=== PATIENT | female | born 1975 | race African-American/Black ===

== ENCOUNTER → 2018-03-02 09:12 | Outpatient (CLI) | payer MEDICAID, SELFPAY ==
[2018-03-02 10:11] LABS: Basophils % 0.5 % (0.1-2.0); Eosinophils # 0.2 K/mm3 (0.0-0.4); Eosinophils % 3.9 % (0.1-12.0); Hematocrit 38.2 % (37.0-47.0); Lymphocytes # 1.6 K/mm3 (0.7-4.5); Mean Corpuscular HGB Conc 31.4 g/dL (31.8-35.4); Mean Corpuscular Volume 89.2 fl (81-99); Mean Platelet Volume 6.9 fl (7.4-10.4); Monocytes # 0.4 K/mm3 (0.1-1.0); Monocytes % 9.3 % (1.7-9.3); Neutrophils # 2.3 K/mm3 (1.8-7.8); Neutrophils % 51.4 % (37.0-80.0); Platelet Count 547 K/mm3 (142-424); Red Blood Count 4.28 M/mm3 (4.20-5.40); Red Cell Distribution Width 15.2 % (11.5-17.5); White Blood Count 4.5 K/mm3 (4.8-10.8)
[2018-03-02 10:27] LABS: Anion Gap 11.6 mEq/L (5-15); Blood Urea Nitrogen 31 mg/dL (7-18); Calcium 8.1 mg/dL (8.5-10.1); Carbon Dioxide 25 mmol/L (21.0-32.0); Chloride 105 mmol/L (98-107); Creatinine,Serum 1.84 mg/dL (0.55-1.02); Estimated Glomerular Filt Rate 30 ml/min (>60); GFR (African American) 36 ML/MIN (>60); Glucose 73 mg/dL (74-106); Phosphorous 5.9 mg/dL (2.4-4.9); Potassium 4.6 mmoL/L (3.5-5.1); Sodium 137 mmol/L (136-145)
== END ==
PROVIDERS: Visit Provider Internal Medicine Nephrology
DX: N18.3 Chronic kidney disease, stage 3 (moderate) (principal)
CPT/HCPCS: 36415; 80069; 85025

== ENCOUNTER 2023-01-26 14:33 | Emergency (ER) | payer MEDICAID, SELFPAY ==
[2023-01-26 14:32] VITALS: BP 90/54; PULSE 83; RESP 18; TEMP 36.8; O2SAT 99; BMI 34.3
[2023-01-26 15:00] VITALS: BP 78/42; PULSE 84; RESP 18; O2SAT 99
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
--- NOTE | 2023-01-26 15:15 | PC.NURSE ---
Called Care Management to arrange transportation back to [facility].
--- NOTE | 2023-01-26 15:28 | SW/DCPLANNER ---
I have arranged [facility] for this patient.
[2023-01-26 15:30] VITALS: BP 90/49; PULSE 86; RESP 20; O2SAT 100
--- NOTE | 2023-01-26 15:47 | PC.NURSE ---
Annabelle eckert called advised [facility] would be here to crop picker pt.
[2023-01-26 16:08] VITALS: BP 101/70; PULSE 82; RESP 20; TEMP 36.8; O2SAT 97
== END 2023-01-26 16:11 | disposition home or self-care (01) ==
PROVIDERS: Emergency Provider Emergency Medicine
DX: R51.9 Headache, unspecified (principal); Z00.00 Encounter for general adult medical examination without abnormal findings
CPT/HCPCS: 99283

== ENCOUNTER 2024-03-11 09:27 | Inpatient (IN) | payer OTHER, SELFPAY ==
[2024-03-11] VITALS (29 sets, daily range): BP systolic 101–147; BP diastolic 53–92; PULSE 67–98; RESP 15–20; TEMP 36.3–43; O2SAT 95–100; BMI 37.5
--- NOTE | 2024-03-11 10:21 | ECG_ITS ---
APPROVED REPORT Exam: Resting ECG HR:90 bpm ECG Measurements Heart Rate 90 AXES TN 157 P 68 QRSd 81 QRS 77 QT 342 T 68 QTc 389 Conclusion SINUS RHYTHM NONSPECIFIC T-WAVE ABNORMALITY BORDERLINE ECG Electronically signed by : FRANCOISE CASTILLO, 03/14/2024 07:05:59
--- NOTE | 2024-03-11 10:45 | XR_ITS ---
PROCEDURE INFORMATION: Exam: XR Chest Exam date and time: 03/11/2024 10:52 AM Age: 48 years old Clinical indication: Cough; Additional info: Productive cough TECHNIQUE: Imaging protocol: Radiologic exam of the chest. Views: 2 views. COMPARISON: CR CXR2V XR chest 2V 01/14/2018 5:22 PM FINDINGS: Lungs: Unremarkable. No consolidation. Pleural spaces: Unremarkable. No pleural effusion. No pneumothorax. Heart/Mediastinum: Unremarkable. No cardiomegaly. Bones/joints: Unremarkable. IMPRESSION: No acute findings.
[2024-03-11 10:50] LABS: Basophils % 0.2 % (0.1-2.0); Hematocrit 38.7 % (37.0-47.0); Lymphocytes # 1.1 K/mm3 (0.7-4.5); Mean Corpuscular HGB Conc 33.6 g/dL (31.8-35.4); Mean Corpuscular Hemoglobin 29.5 pg (27.0-31.2); Mean Corpuscular Volume 87.8 fl (81-99); Mean Platelet Volume 10.1 fl (7.4-10.4); Monocytes # 0.9 K/mm3 (0.1-1.0); Neutrophils # 10.3 K/mm3 (1.8-7.8); Neutrophils % 83.6 % (37.0-80.0); Platelet Count 338 K/mm3 (142-424); Red Blood Count 4.41 M/mm3 (4.20-5.40); Red Cell Distribution Width 13.6 % (11.5-17.5); White Blood Count 12.3 K/mm3 (4.8-10.8)
[2024-03-11 10:52] LABS: Albumin Level 4.1 g/dl (3.5-5.0); Chloride 93 mmol/L (98-107); Potassium 3.9 mmoL/L (3.5-5.1); Sodium 131 mmol/L (136-145)
[2024-03-11 10:54] LABS: Blood Urea Nitrogen 21 mg/dl (7-17); Creatinine Clearance Estimated 103 mL/min (50-200); Estimated Glomerular Filt Rate 59 ml/min (>60); GFR (African American) 71 ML/MIN (>60)
[2024-03-11 10:55] LABS: Alanine Aminotransferase 35 U/L (12-78); Albumin/Globulin Ratio 1.3 (1.1-1.8); Alkaline Phosphatase 100 U/L (38-126); Anion Gap 8.9 mEq/L (5-15); Aspartate Amino Transferase 51 U/L (14-36); Bilirubin,Total 0.6 mg/dl (0.2-1.3); Calcium 9.4 mg/dl (8.4-10.2); Carbon Dioxide 33 mmol/L (22.0-30.0); Globulin 3.1 g/dL (1.3-3.2); Glucose 115 mg/dl (74-100); Total Protein,Serum 7.2 g/dl (6.3-8.2)
[2024-03-11 11:07] LABS: Troponin I < 0.01 ng/ml (0.00-0.034)
--- NOTE | 2024-03-11 11:23 | CT_ITS ---
PROCEDURE INFORMATION: Exam: CT Abdomen And Pelvis With Contrast Exam date and time: 03/11/2024 12:18 PM Age: 48 years old Clinical indication: Constipation; Abdominal pain; Generalized; Additional info: Diffuse pain, periumbilical hernia no bm 1 wk TECHNIQUE: Imaging protocol: Computed tomography of the abdomen and pelvis with contrast. Radiation optimization: All CT scans at this facility use at least one of these dose optimization techniques: automated exposure control; mA and/or kV adjustment per patient size (includes targeted exams where dose is matched to clinical indication); or iterative reconstruction. Contrast material: ISOVUE; Contrast volume: 75 ml; Contrast route: IV; COMPARISON: CR XR CHEST 2V 03/11/2024 10:52 AM FINDINGS: Lungs: Nodule with calcification in the right lower lobe measuring 5 mm either a hamartoma or partially calcified granuloma. Pleural spaces: Small left pleural effusion. Liver: Normal. No mass. Gallbladder and biliary ducts: Normal. No calcified stones. No ductal dilation. Pancreas: Normal. No ductal dilation. Spleen: Granulomas in the spleen. Adrenal glands: Normal. No mass. Kidneys and ureters: Normal. No hydronephrosis. Stomach and bowel: There is small bowel obstruction with bowel loops measuring up to 37 mm due to a anterior abdominal wall hernia just above the umbilicus. Appendix: No evidence of appendicitis. Intraperitoneal space: Small amount of pelvic fluid. No significant fluid collection. Vasculature: Unremarkable. No abdominal aortic aneurysm. Lymph nodes: Diameter granulomatous disease and a subcarinal enlarged lymph node. Urinary bladder: Unremarkable as visualized. Reproductive: Unremarkable as visualized. Bones/joints: Unremarkable. No acute fracture. Soft tissues: Multiple nodules noted in the posterior gluteal soft tissues presumably injection granulomata. IMPRESSION: 1. Small bowel obstruction due to an anterior abdominal wall hernia just above the umbilicus. 2. Small left pleural effusion. 3. THIS REPORT CONTAINS FINDINGS THAT MAY BE CRITICAL TO PATIENT CARE. The findings were verbally communicated by me to FRANCOISE CASTILLO at 12:50 PM EST on 03/11/2024. The findings were acknowledged and understood.
--- NOTE | 2024-03-11 11:23 | PC.NURSE ---
LICENSED MARINE ENGINEER NOTIFIED THAT PT NEEDS SITTER, TALEND DEVELOPER NEEDS TO RETURN TO WORK
--- NOTE | 2024-03-11 11:25 | HMH.EDGENADL ---
Discharge Plan Disposition Chief Complaint: Nausea/Vomiting/Diarrhea Prescriptions Prescriptions: No Action spironolactone 25 mg tablet 25 mg PO DAILY Symbicort 80-4.5 mcg/actuation HFA aerosol inhaler 2 puff INHALATION BID Proventil HFA 90 mcg/actuation HFA aerosol inhaler 1 puff INHALATION Q6H PRN (Reason: SOA) lisinopril 10 MG tablet 10 mg PO DAILY oxybutynin chloride 5 MG tablet 5 mg PO DAILY calcium carbonate-vitamin D3 1 EACH tablet,chewable 1 each PO DIRECTED torsemide 20 mg tablet 20 mg PO DAILY levothyroxine 75 mcg tablet 75 mcg PO DAILY montelukast 10 mg tablet 10 mg PO DAILY paliperidone 6 mg tablet extended release 24hr 6 mg PO DAILY Patient Comments: TAKE 1 TABLET BY MOUTH EVERY MORNING Invega Sustenna 234 mg/1.5 mL syringe 234 mg IM Q28D Patient Comments: INJECT 1 SYRINGE INTO THE MUSCLE EVERY 28 DAYS Abilify Maintena 400 mg suspension,extended rel recon 400 mg IM Q28D Referrals Follow up/Referrals: Fran Juan [Primary Care Provider] - See instructions Instructions Patient Instructions: DI for Diarrhea and Traveler's Diarrhea -- Adult, DI for Diarrhea and Traveler's Diarrhea -- Child, DI for Nausea -- Adult, DI for Nausea -- Child Print Language Print Language: Greenlandic Discharge ED Provider: Khalif Kaplan General Adult HPI General Chief complaint: Nausea/Vomiting/Diarrhea Stated complaint: vomiting, heartburn Time Seen by Provider: 03/11/24 10:26 Mode of Arrival: Ambulatory Source of Information: Patient Limitations: No Limitations Description of Symptoms (Recalled from ER Triage Doc. by RN): pt c/o N/V, heart burn, and a productive cough with green sputum X3d. pt also reports her last BM was 1wk ago and she thinks she maybe constipated. pt states she feels queasy but denies abd pain. pt denies SOA or chest pain with the exception of heart burn History of Present Illness HPI narrative: Patient is a 48-year-old female past medical history of schizophrenia on Invega who presents emergency department for evaluation of no bowel movement x 1 week. History is obtained by patient and by caregiver at bedside she lives at long-term care facility due to her schizophrenia causing chronic audiovisual hallucinations and inability to complete her activities of daily living. She has not had a bowel movement for 1 week and is not passing flatus. She has been vomiting throughout the course which has been witnessed by the caretakers. She states that she has diffuse abdominal pain, when asked if she had chest pain at triage she said yes however she has not complained of chest pain throughout her course of the caretakers and is not stating that she has chest pain to me. She has past abdominal surgical history for which she is largely unaware. She knows that she has periumbilical hernia. Per chart review she takes oxybutynin, paliperidone, spironolactone, torsemide, Abilify, atorvastatin, Invega, levothyroxine and lisinopril. There are patients at this facility that wander off and go dumpster diving and have been known to eat parables which have caused vomiting before however the patient has not explicitly done this but she does frequently walk around with the other people who have been known to do this. No other acute complaints at this time. Related Data Home Medications ?Medication ?Instructions ?Recorded ?Confirmed calcium 500 mg (as carbonate)-vit 1 each PO DIRECTED Supplement 01/14/18 01/26/23 D3 10 mcg (400 unit) chewable tablet lisinopril 10 mg tablet 10 mg PO DAILY HTN 01/14/18 01/26/23 oxybutynin chloride 5 mg tablet 5 mg PO DAILY bladder 01/14/18 01/26/23 albuterol sulfate 90 mcg/actuation 1 puff inhalation Q6H PRN SOA 03/02/18 01/26/23 aerosol inhaler (Proventil HFA) budesonide-formoterol HFA 80 2 puff inhalation BID 03/02/18 01/26/23 mcg-4.5 mcg/actuation aerosol inhaler (Symbicort) spironolactone 25 mg tablet 25 mg PO DAILY 03/02/18 01/26/23 aripiprazole 400 mg intramuscular 400 mg IM Q28D 01/26/23 01/26/23 suspension,extended release (Abilify Maintena) levothyroxine 75 mcg tablet 75 mcg PO DAILY hypothyoid 01/26/23 01/26/23 montelukast 10 mg tablet 10 mg PO DAILY Allergy Symptoms 01/26/23 01/26/23 paliperidone 6 mg tablet,extended 6 mg PO DAILY 01/26/23 01/26/23 release 24 hr paliperidone palmitate 234 mg/1.5 234 mg IM Q28D 01/26/23 01/26/23 mL intramuscular syringe (Invega Sustenna) torsemide 20 mg tablet 20 mg PO DAILY 01/26/23 01/26/23 Allergies Allergy/AdvReac Type Severity Reaction Status Date / Time divalproex sodium (From Allergy Unknown Unknown Verified 03/11/24 10:52 DEPAKOTE) allergy reaction Latex, Natural Rubber Allergy Unknown Unknown Verified 03/11/24 10:52 (LATEX, NATURAL RUBBER) allergy reaction BANANAS (FOOD) Allergy Unknown Unknown Uncoded 03/11/24 10:52 allergy reaction KIWI Allergy Unknown Unknown Uncoded 03/11/24 10:52 allergy reaction PFSH PFS Disclaimer: The information contained in this section may have been updated after the patient was seen, as this information can be updated by other users. Social History Smoking Status: Current every day smoker alcohol intake: never substance use type: denies use current occupational status: unemployed Travel in the last 8 weeks: None household members: caregiver housing: assisted living facility Have you lived/traveled outside [place] in past 30 days?: No Contact w/someone who lives/traveled outside [place] past 30 days?: No Exposure to someone with infectious disease in past 14 days?: No Do you have a fever (greater than 100.4 F or 38 C)?: No Have you tested positive for COVID-19: No Exposed to someone with COVID-19 in past 14 days?: No Do you have a sore throat?: No Do you have a cough?: Yes Do you have any weakness?: Yes Do you have any diarrhea?: No Are you experiencing any unusual bleeding?: No Do you have any muscle aches/pain?: No Do you have any abdominal pain?: Yes Are you experiencing loss of taste or smell?: No Other Medical History Have you received the Pneumonia Vaccine: No ROS Obtained: Yes Systems reviewed as appropriate & no additional complaints except as documented Physical Exam General General appearance: alert and in no apparent distress Head Head exam: atraumatic and normocephalic Eye Eye exam: Present PERRL and EOMI ENT ENT exam: Present mucous membranes moist Neck Neck exam: Present normal inspection Chest Chest inspection: Present normal inspection and symmetric chest wall rise Respiratory Respiratory exam: Present normal lung sounds bilaterally; Absent respiratory distress Cardiovascular Cardiovascular exam: Present regular rate and normal rhythm Abdominal Exam Abdominal exam: Present soft, tenderness (Mild, diffuse) and other (There is a palpable hernia at 12:00 above the umbilicus with no overlying skin changes, does not appear to be reducible.); Absent guarding or rebound Extremities Exam Extremities exam: Present normal inspection Neurological Exam Neurological exam: Present alert Psychiatric Psychiatric exam: Present normal affect Skin Skin exam: Present warm and dry Medical Decision Making Medical Records Screening: Per USPSTF and CDC recommendations, given the prevalence of disease in our region, it is our hospital?s policy to screen for HIV and viral Hepatitis for all patients aged 18 and over and those with ongoing risk factors. Dajuan Inquiry Pt receiving controlled substance: No Vital Signs: 03/11/24 10:41 Temperature 98.5 F Temperature Source Oral Pulse Rate [Left] 91 H Respiratory Rate 18 Blood Pressure [Right Arm] 108/69 L Blood Pressure Mean [Right Arm] 82 Blood Pressure Source [Right Arm] Automatic Cuff Blood Pressure Position [Right Arm] Sitting 02 Sat by Pulse Oximetry 99 Oxygen Delivery Method Room Air Lab Data Lab Results 03/11/24 10:30: WBC 12.3 H, RBC 4.41, Hgb 13.0, Hct 38.7, MCV 87.8, MCH 29.5, MCHC 33.6, RDW 13.6, Plt Count 338, MPV 10.1, Neut % (Auto) 83.6 H, Lymph % (Auto) 9.0 L, C[place]oula % (Auto) 7.0, Eos % (Auto) 0.0 L, Baso % (Auto) 0.2, Neut # (Auto) 10.3 H, Lymph # (Auto) 1.1, [place]oula # (Auto) 0.9, Eos # (Auto) 0.0, Baso # (Auto) 0.0, Sodium 131 L, Potassium 3.9, Chloride 93 L, Carbon Dioxide 33 H, Anion Gap 8.9, BUN 21 H, Creatinine 1.00, Estimated Creat Clear 103, Estimated GFR 59, Est GFR ( Amer) 71, Glucose 115 H, Calcium 9.4, Total Bilirubin 0.6, AST 51 H, ALT 35, Alkaline Phosphatase 100, Troponin I < 0.01, Total Protein 7.2, Albumin 4.1, Globulin 3.1, Albumin/Globulin Ratio 1.3 03/11/24 10:30 03/11/24 10:30 Orders (Tests/Meds): ED MEDICATIONS Generic Name Dose Route Start Last Admin Trade Name Freprincess PRN Reason Stop Dose Admin Lactated Ringer's 1,000 mls @ 999 mls/hr 03/11/24 11:30 Lactated Ringer's 1000 Ml Bag IV 03/11/24 12:30 .Q1H1M ONE Discontinued Medications Generic Name Dose Route Start Last Admin Trade Name Freq PRN Reason Stop Dose Admin Ondansetron HCl 4 mg 03/11/24 11:24 Ondansetron 4mg/2ml Vial IV 03/11/24 11:25 ONCE ONE ORDERS Category Date Time Status CT abdomen pelvis w con Stat Cat Scan 03/11/24 11:23 Ordered XR chest 2V Stat Exams 03/11/24 10:45 Taken Complete Blood Count Auto Diff Stat Lab 03/11/24 10:30 Completed Comprehensive Metabolic Panel Stat Lab 03/11/24 10:30 Completed HIV (1&2) Antibody Rapid Stat Lab 03/11/24 10:45 Ordered Hep C Ab with Reflex to RNA Stat Lab 03/11/24 10:45 Ordered Lipase Stat Lab 03/11/24 10:30 Received Rapid PCR Covid and Flu A/B Stat Lab 03/11/24 11:23 Ordered Trop T [Troponin I] Stat Lab 03/11/24 10:30 Completed Troponin I Q3H Lab 03/11/24 13:45 Ordered Troponin I Q3H Lab 03/11/24 16:45 Ordered UA [Urinalysis and Microscopic] Stat Lab 03/11/24 11:23 Ordered ECG Data Tracing #1: Independently interpreted by me rate is 90, rhythm is regular, axis is normal, no ST elevation in anatomical contiguous leads, QTc 389. Medical Decision Narrative: In summary patient is a 48-year-old female past medical history described above who presents emergency department for evaluation of no bowel movement x 1 week. Patient is hemodynamically stable nontoxic-appearing upon arrival, afebrile. Differential diagnosis includes bowel obstruction, ileus, among others. Workup will be conducted with hematologic labs, urinalysis, CT abdomen pelvis IV contrast. Given complaint of chest pain or triage limited workup be conducted with chest x-ray, EKG, single troponin. She does not have any chest pain to me on my evaluation. Initial inventions include crystalloid bolus, Zofran. Critical Care Critical Care Time Critical Care Time: No
[2024-03-11 11:33] LABS: Lipase 36 U/L (23-300)
[2024-03-11] MEDS: ONDANSETRON 4MG/2ML VIAL 4 MG IV (11:33)
[2024-03-11] MEDS: LACTATED RINGERS 1000ML 1,000 ML 999 ML IV (11:33)
[2024-03-11 11:48] LABS: HCG Qualitative, Serum Negative (Negative)
[2024-03-11] MEDS: IOPAMIDOL-370 (76%);100ML BOTTLE 75 ML IV (12:22)
[2024-03-11] MEDS: SODIUM CHLORIDE 0.9% 10ML SYR (RAD ONLY) 10 ML IV (12:22)
[2024-03-11 12:30] LABS: Coronavirus 19, PCR Not Detected (NotDetected); Influenza A, PCR Not Detected (NotDetected); Influenza B, PCR Not Detected (NotDetected)
[2024-03-11 12:40] LABS: HIV Combo NEGATIVE (Negative)
--- NOTE | 2024-03-11 12:58 | PC.NURSE ---
DR CASTILLO SPEAKING WITH DR KIRAN
[2024-03-11 13:02] LABS: Appearance,Urine CLEAR (Clear); Bilirubin,Urine Negative (Negative); Blood, Urine Negative (Negative); Color,Urine YELLOW (Yellow); Glucose,Urine (UA) Negative (Negative); Ketones,Urine Negative (Negative); Leukocyte Esterase,Urine Negative (Negative); Microscopic, Urine URINE MICROSCOPIC (MICROSCOPIC); Nitrate,Urine Negative (Negative); PH,Urine 6.5 (5.0-8.5); Protein,Urine Negative (Negative); Urobilinogen,Urine 0.2 EU/dl (0.2)
[2024-03-11 13:09] LABS: Bacteria,Urine Trace /lpf; Squamous Epithelial Cell,Urine Occasional #/hpf (0-5)
--- NOTE | 2024-03-11 13:46 | P.CONS_ITS ---
History of Present Illness *Admission Date: 03/11/24 *Reason for visit:: Hernia, bowel obstruction *History of present illness: Patient is a 48-year-old schizophrenic disabled patient who is a resident of [facility] who was brought to the emergency department due to a 1 week history of obstipation. Some nausea but no vomiting. Workup included CT scan which revealed findings of small bowel obstruction due to an anterior abdominal wall hernia just above the umbilicus. Surgical consultation was obtained. [facility] Disclaimer: The information contained in this section may have been updated after the patient was seen, as this information can be updated by other users. Social History Smoking Status: Current every day smoker alcohol intake: never substance use type: denies use current occupational status: unemployed Travel in the last 8 weeks: None household members: caregiver housing: assisted living facility Have you lived/traveled outside US in past 30 days?: No Contact w/someone who lives/traveled outside US past 30 days?: No Exposure to someone with infectious disease in past 14 days?: No Do you have a fever (greater than 100.4 F or 38 C)?: No Have you tested positive for COVID-19: No Exposed to someone with COVID-19 in past 14 days?: No Do you have a sore throat?: No Do you have a cough?: Yes Do you have any weakness?: Yes Do you have any diarrhea?: No Are you experiencing any unusual bleeding?: No Do you have any muscle aches/pain?: No Do you have any abdominal pain?: Yes Are you experiencing loss of taste or smell?: No Review of Systems Review of Systems Review of systems:: unable to obtain Meds Home Medications and Allergies Home Medications ?Medication ?Instructions ?Recorded ?Confirmed ?Type calcium 500 mg (as carbonate)-vit 1 each PO DIRECTED Supplement 01/14/18 01/26/23 History D3 10 mcg (400 unit) chewable tablet lisinopril 10 mg tablet 10 mg PO DAILY HTN 01/14/18 01/26/23 History oxybutynin chloride 5 mg tablet 5 mg PO DAILY bladder 01/14/18 01/26/23 History albuterol sulfate 90 mcg/actuation 1 puff inhalation Q6H PRN SOA 03/02/18 01/26/23 History aerosol inhaler (Proventil HFA) budesonide-formoterol HFA 80 2 puff inhalation BID 03/02/18 01/26/23 History mcg-4.5 mcg/actuation aerosol inhaler (Symbicort) spironolactone 25 mg tablet 25 mg PO DAILY 03/02/18 01/26/23 History aripiprazole 400 mg intramuscular 400 mg IM Q28D 01/26/23 01/26/23 History suspension,extended release (Abilify Maintena) levothyroxine 75 mcg tablet 75 mcg PO DAILY hypothyoid 01/26/23 01/26/23 History montelukast 10 mg tablet 10 mg PO DAILY Allergy Symptoms 01/26/23 01/26/23 History paliperidone 6 mg tablet,extended 6 mg PO DAILY 01/26/23 01/26/23 History release 24 hr paliperidone palmitate 234 mg/1.5 234 mg IM Q28D 01/26/23 01/26/23 History mL intramuscular syringe (Invega Sustenna) torsemide 20 mg tablet 20 mg PO DAILY 01/26/23 01/26/23 History New Prescriptions to Start Prescriptions: Allergies Allergy/AdvReac Type Severity Reaction Status Date / Time divalproex sodium (From Allergy Unknown Unknown Verified 03/11/24 10:52 DEPAKOTE) allergy reaction Latex, Natural Rubber Allergy Unknown Unknown Verified 03/11/24 10:52 (LATEX, NATURAL RUBBER) allergy reaction BANANAS (FOOD) Allergy Unknown Unknown Uncoded 03/11/24 10:52 allergy reaction KIWI Allergy Unknown Unknown Uncoded 03/11/24 10:52 allergy reaction Exam (Inpt) Vital signs and Labs for Last 24 Hours: Temp Pulse Resp BP Pulse Ox O2 Del Method 98.5 F 67 20 119/80 99 Room Air 03/11/24 10:41 03/11/24 12:05 03/11/24 12:10 03/11/24 12:10 03/11/24 12:10 03/11/24 12:10 Laboratory Results - last 24 hr 03/11/24 10:30: WBC 12.3 H, RBC 4.41, Hgb 13.0, Hct 38.7, MCV 87.8, MCH 29.5, MCHC 33.6, RDW 13.6, Plt Count 338, MPV 10.1, Neut % (Auto) 83.6 H, Lymph % (Auto) 9.0 L, [place] % (Auto) 7.0, Eos % (Auto) 0.0 L, Baso % (Auto) 0.2, Neut # (Auto) 10.3 H, Lymph # (Auto) 1.1, [place] # (Auto) 0.9, Eos # (Auto) 0.0, Baso # (Auto) 0.0, Sodium 131 L, Potassium 3.9, Chloride 93 L, Carbon Dioxide 33 H, Anion Gap 8.9, BUN 21 H, Creatinine 1.00, Estimated Creat Clear 103, Estimated GFR 59, Est GFR ( Amer) 71, Glucose 115 H, Calcium 9.4, Total Bilirubin 0.6, AST 51 H, ALT 35, Alkaline Phosphatase 100, Troponin I < 0.01, Total Protein 7.2, Albumin 4.1, Globulin 3.1, Albumin/Globulin Ratio 1.3, Lipase 36, Serum HCG, Qual Negative, HIV Ag/Ab Combo Qual Negative 03/11/24 12:25: SARS-CoV-2 (PCR) Not detected, Influenza A Untype (PCR) Not detected, Influenza Type B (PCR) Not detected 03/11/24 12:44: Urine Color Yellow, Urine Appearance Clear, Urine pH 6.5, Ur Specific [place] 1.010, Urine Protein Negative, Urine Glucose (UA) Negative, Urine Ketones Negative, Urine Blood Negative, Urine Nitrate Negative, Urine Bilirubin Negative, Urine Urobilinogen 0.2, Ur Leukocyte Esterase Negative, Urine RBC None, Urine WBC None, Ur Squamous Epith Cells Occasional, Urine Bacteria Trace I & O for Labs for Last 24 Hours: Intake & Output 03/09/24 03/10/24 03/11/24 03/12/24 11:59 11:59 11:59 11:59 Weight 212 lb Constitutional: no acute distress Head: Present normocephalic Neck: Present normal inspection Respiratory: Present CTA bilaterally Cardiac: Present Reg Rate and Rhythm GI: Present soft Comments:: Palpable bulge above her umbilical area. Somewhat tender. No skin changes. Unable to reduce. Rectal (female): Present deferred (female): Present deferred Skin: Present intact Results Labs 03/11/24 10:30 03/11/24 10:30 Labs: Laboratory Results - last 24 hr 03/11/24 10:30: WBC 12.3 H, RBC 4.41, Hgb 13.0, Hct 38.7, MCV 87.8, MCH 29.5, MCHC 33.6, RDW 13.6, Plt Count 338, MPV 10.1, Neut % (Auto) 83.6 H, Lymph % (Auto) 9.0 L, [place] % (Auto) 7.0, Eos % (Auto) 0.0 L, Baso % (Auto) 0.2, Neut # (Auto) 10.3 H, Lymph # (Auto) 1.1, [place] # (Auto) 0.9, Eos # (Auto) 0.0, Baso # (Auto) 0.0, Sodium 131 L, Potassium 3.9, Chloride 93 L, Carbon Dioxide 33 H, Anion Gap 8.9, BUN 21 H, Creatinine 1.00, Estimated Creat Clear 103, Estimated GFR 59, Est GFR ( Amer) 71, Glucose 115 H, Calcium 9.4, Total Bilirubin 0.6, AST 51 H, ALT 35, Alkaline Phosphatase 100, Troponin I < 0.01, Total Protein 7.2, Albumin 4.1, Globulin 3.1, Albumin/Globulin Ratio 1.3, Lipase 36, Serum HCG, Qual Negative, HIV Ag/Ab Combo Qual Negative 03/11/24 12:25: SARS-CoV-2 (PCR) Not detected, Influenza A Untype (PCR) Not detected, Influenza Type B (PCR) Not detected 03/11/24 12:44: Urine Color Yellow, Urine Appearance Clear, Urine pH 6.5, Ur Specific [place] 1.010, Urine Protein Negative, Urine Glucose (UA) Negative, Urine Ketones Negative, Urine Blood Negative, Urine Nitrate Negative, Urine Bilirubin Negative, Urine Urobilinogen 0.2, Ur Leukocyte Esterase Negative, Urine RBC None, Urine WBC None, Ur Squamous Epith Cells Occasional, Urine Bacteria Trace Assessment and Plan *Assessment and plan (1) Hernia, ventral, with obstruction: Status: Acute Category: Medical Code(s): K43.6 - Other and unspecified ventral hernia with obstruction, without gangrene Plan Patient has supraumbilical incarcerated, potentially strangulated, ventral hernia creating small bowel obstruction. It appears as though the defect is about 2.5 cm with a hernia sac of 7.5 cm. Given the bowel distention and slight thickening with the nature of the hernia I feel that open repair with possible bowel resection would be the best plan of action. Arrangements will be made
--- NOTE | 2024-03-11 13:52 | PC.NURSE ---
DR KIRAN AT BEDSIDE
--- NOTE | 2024-03-11 13:59 | PC.NURSE ---
I called and spoke to Yary Jeong ([phone]) the Method Consultant at [facility] where the pt lives. Yary states the pt is able to sign her own paperwork and consent. I updated her on the status of the pt and the plan to take her to surgery for her SBO.
--- NOTE | 2024-03-11 14:03 | P.HP_ITS ---
History of Present Illness *Admission Date: 03/11/24 *Reason for visit:: Abdominal pain, nausea and vomiting *History of present illness: Ms. Caceres is a 48-year-old female with schizophrenia, hypothyroid, hypertension who lives at a personal assisted in [place]. She presented with 5 to 7 days of worsening abdominal pain, nausea and vomiting. Has not had a bowel movement 4 to 5 days. Denies any fever. States her abdomen has been feeling worse and more bloated. Workup in the ER with CT shows small bowel obstruction due to anterior abdominal wall hernia just above the umbilicus. Surgery was consulted and patient was taken to the OR for emergent surgery and reduction of incarc erated hernia. Medicine consulted for admission after the procedure. Surgery was successful, case discussed with surgeon, no bowel necessitated removal or excision at this time. Appeared viable. Hernia was closed. Would like to monitor with NG and monitor for improvement/resumption of bowel function. On evaluation after arriving to the floor, patient states she is feeling better. Denies any nausea. NG in place. Stable on room air. Alert and oriented to person and place. Pleasant on exam. [facility] Disclaimer: The information contained in this section may have been updated after the patient was seen, as this information can be updated by other users. Medical History (Updated 03/11/24 @ 20:01 by Leon Zuñiga MD) Schizo-affective schizophrenia Renal disease Seizures HTN (hypertension) HLD (hyperlipidemia) GERD (gastroesophageal reflux disease) Ventral hernia with bowel obstruction No significant past medical history Surgical History History of bowel resection History of ventral hernia repair Family History Other No significant family history Social History Smoking Status: Current every day smoker alcohol intake: never substance use type: denies use current occupational status: unemployed Travel in the last 8 weeks: None household members: caregiver housing: assisted living facility Have you lived/traveled outside US in past 30 days?: No Contact w/someone who lives/traveled outside US past 30 days?: No Exposure to someone with infectious disease in past 14 days?: No Do you have a fever (greater than 100.4 F or 38 C)?: No Have you tested positive for COVID-19: No Exposed to someone with COVID-19 in past 14 days?: No Do you have a sore throat?: No Do you have a cough?: Yes Do you have any weakness?: Yes Do you have any diarrhea?: No Are you experiencing any unusual bleeding?: No Do you have any muscle aches/pain?: No Do you have any abdominal pain?: Yes Are you experiencing loss of taste or smell?: No Other Medical History Have you received the Pneumonia Vaccine: No Review of Systems Review of Systems Review of systems (narrative): 14 point review of systems performed, pertinent positives and negatives as per [facility] Meds Home Medications and Allergies Home Medications ?Medication ?Instructions ?Recorded ?Confirmed ?Type lisinopril 10 mg tablet 10 mg PO DAILY HTN 01/14/18 03/11/24 History oxybutynin chloride 5 mg tablet 5 mg PO DAILY bladder 01/14/18 03/11/24 History spironolactone 25 mg tablet 25 mg PO DAILY 03/02/18 03/11/24 History aripiprazole 400 mg intramuscular 400 mg IM Q28D 01/26/23 03/11/24 History suspension,extended release (Abilify Maintena) levothyroxine 75 mcg tablet 75 mcg PO DAILY hypothyoid 01/26/23 03/11/24 History montelukast 10 mg tablet 10 mg PO DAILY Allergy Symptoms 01/26/23 03/11/24 History paliperidone 6 mg tablet,extended 6 mg PO DAILY 01/26/23 03/11/24 History release 24 hr paliperidone palmitate 234 mg/1.5 234 mg IM Q28D 01/26/23 03/11/24 History mL intramuscular syringe (Invega Sustenna) torsemide 20 mg tablet 20 mg PO DAILY 01/26/23 03/11/24 History atorvastatin 40 mg tablet 40 mg PO HS 03/11/24 03/11/24 History New Prescriptions to Start Prescriptions: Allergies Allergy/AdvReac Type Severity Reaction Status Date / Time divalproex sodium (From Allergy Unknown Unknown Verified 03/11/24 10:52 DEPAKOTE) allergy reaction Latex, Natural Rubber Allergy Unknown Unknown Verified 03/11/24 10:52 (LATEX, NATURAL RUBBER) allergy reaction BANANAS (FOOD) Allergy Unknown Unknown Uncoded 03/11/24 10:52 allergy reaction KIWI Allergy Unknown Unknown Uncoded 03/11/24 10:52 allergy reaction Exam Data for Last 24 hours Vital signs and Labs for Last 24 Hours: Temp Pulse Resp BP Pulse Ox O2 Del Method 98.5 F 67 20 119/80 99 Room Air 03/11/24 10:41 03/11/24 12:05 03/11/24 12:10 03/11/24 12:10 03/11/24 12:10 03/11/24 12:10 Laboratory Results - last 24 hr 03/11/24 10:30: WBC 12.3 H, RBC 4.41, Hgb 13.0, Hct 38.7, MCV 87.8, MCH 29.5, MCHC 33.6, RDW 13.6, Plt Count 338, MPV 10.1, Neut % (Auto) 83.6 H, Lymph % (Auto) 9.0 L, [place] % (Auto) 7.0, Eos % (Auto) 0.0 L, Baso % (Auto) 0.2, Neut # (Auto) 10.3 H, Lymph # (Auto) 1.1, [place] # (Auto) 0.9, Eos # (Auto) 0.0, Baso # (Auto) 0.0, Sodium 131 L, Potassium 3.9, Chloride 93 L, Carbon Dioxide 33 H, Anion Gap 8.9, BUN 21 H, Creatinine 1.00, Estimated Creat Clear 103, Estimated GFR 59, Est GFR ( Amer) 71, Glucose 115 H, Calcium 9.4, Total Bilirubin 0.6, AST 51 H, ALT 35, Alkaline Phosphatase 100, Troponin I < 0.01, Total Protein 7.2, Albumin 4.1, Globulin 3.1, Albumin/Globulin Ratio 1.3, Lipase 36, Serum HCG, Qual Negative, HIV Ag/Ab Combo Qual Negative 03/11/24 12:25: SARS-CoV-2 (PCR) Not detected, Influenza A Untype (PCR) Not detected, Influenza Type B (PCR) Not detected 03/11/24 12:44: Urine Color Yellow, Urine Appearance Clear, Urine pH 6.5, Ur Specific [place] 1.010, Urine Protein Negative, Urine Glucose (UA) Negative, Urine Ketones Negative, Urine Blood Negative, Urine Nitrate Negative, Urine B ilirubin Negative, Urine Urobilinogen 0.2, Ur Leukocyte Esterase Negative, Urine RBC None, Urine WBC None, Ur Squamous Epith Cells Occasional, Urine Bacteria Trace I & O for Last 24 hours: Intake & Output 03/08/24 03/09/24 03/10/24 03/11/24 23:59 23:59 23:59 23:59 Weight 96.162 kg Constitutional Constitutional: no acute distress, obese and cooperative *Routine HEENT Exam Head: Present normocephalic Eye: Present EOMI and PERRL ENT: Present mucous membranes moist Comments: NG in left nare *Routine Neck Exam Neck: Present supple; Absent lymphadenopathy *Routine Respiratory Exam Respiratory: Present CTA bilaterally; Absent rhonchi, wheezes or crackles *Routine Cardiovascular Exam Cardiovascular: Present RRR *Routine Abdominal Exam Abdominal: Present soft and tenderness (Diffuse but most prominent over midline incision); Absent normoactive bowel sounds Comments: Hypoactive to absent bowel sounds *Routine Rectal Exam Rectal:: deferred *Routine Genitalia Exam Genitalia:: deferred *Routine Extremities Exam Extremities: Absent cyanosis, clubbing or edema *Routine Skin Exam Skin: Present warm; Absent rash *Routine Neurological Exam Neurological: Present alert and moving all extremities; Absent altered mental status Assessment and Plan *Assessment and plan (1) Small bowel obstruction: Status: Acute Category: Medical Code(s): K56.609 - Unspecified intestinal obstruction, unspecified as to partial versus complete obstruction (2) Hernia, ventral, with obstruction: Status: Acute Category: Medical Code(s): K43.6 - Other and unspecified ventral hernia with obstruction, without gangrene (3) Hypothyroidism: Status: Chronic Qualifiers: Hypothyroidism type: unspecified Qualified Code(s): E03.9 - Hypothyroidism, unspecified Category: Medical Code(s): E03.9 - Hypothyroidism, unspecified (4) HTN (hypertension): Status: Chronic Qualifiers: Hypertension type: primary hypertension Qualified Code(s): I10 - Essential (primary) hypertension Category: Medical Code(s): I10 - Essential (primary) hypertension (5) Seizures: Status: Chronic Category: Medical Code(s): R56.9 - Unspecified convulsions (6) Schizo-affective schizophrenia: Status: Chronic Category: Medical Code(s): F25.9 - Schizoaffective disorder, unspecified Plan 48-year-old female with schizoaffective/schizophrenia. Presented with a week of nausea vomiting and concern for obstruction. Workup in the ER concerning for incarcerated hernia. Surgery consulted and taken to the OR for treatment. Discussed case with ER physician and surgeon, request admission for monitoring after surgery and awaiting resumption of bowel function. I agreed to admit for further treatment. Problems addressed as follows: Bowel obstruction Ventral hernia -Taken to the OR, they will remove from hernia. Bowel appeared viable per discussion with surgeon. No resection performed. Hernia defect closed. Will monitor with NG in place and n.p.o. at this time until bowel function resumes. -Continue LR at 100 cc an hour. -Pain control with morphine IV 4 mg as needed every 4 hours. Monitor for toxicity - White count 12.3, hemoglobin 13. Repeat CBC, CMP, magnesium ordered for the morning. Slight electrolyte disturbances with sodium of 131, chloride 93, potassium 3.9. Kidney function normal with BUN 21, creatinine 1. -Per my review of CT, obstruction noted with small bowel and ventral hernia. Hypothyroid: Continue levothyroxine 75 mcg daily. TSH pending Hypertension: Well-controlled. Will hold blood pressure meds at this time, consider as needed IV enalapril if blood pressure above 180/100. Holding spironolactone and torsemide Hyperlipidemia: Holding statin pending resumption of p.o. intake Schizoaffective/schizophrenia: On paliperidone IM and IM pegylated aripiprazole monthly. Mood appropriate, cooperative. Obesity complicates all aspects of her care. Full code Holding anticoagulation N.p.o., maintenance fluids with LR at 100 cc an hour
[2024-03-11] MEDS: AMPICILLIN/SULBACTAM 3 GM in 0.9 % SODIUM CHLORIDE 100 ML IV (15:00)
--- NOTE | 2024-03-11 15:31 | EXP.ANES.CKL ---
[facility] Disclaimer: The information contained in this section may have been updated after the patient was seen, as this information can be updated by other users. Social History Smoking Status: Current every day smoker alcohol intake: never substance use type: denies use current occupational status: unemployed Travel in the last 8 weeks: None household members: caregiver housing: assisted living facility Have you lived/traveled outside US in past 30 days?: No Contact w/someone who lives/traveled outside US past 30 days?: No Exposure to someone with infectious disease in past 14 days?: No Do you have a fever (greater than 100.4 F or 38 C)?: No Have you tested positive for COVID-19: No Exposed to someone with COVID-19 in past 14 days?: No Do you have a sore throat?: No Do you have a cough?: Yes Do you have any weakness?: Yes Do you have any diarrhea?: No Are you experiencing any unusual bleeding?: No Do you have any muscle aches/pain?: No Do you have any abdominal pain?: Yes Are you experiencing loss of taste or smell?: No [facility] Anesthesia Checklist Patient Identification Patient Identification: Arm Band Structural Data Admitted From: Emergency Dept Planned Operative Procedure/s: Open Ventral Hernia Repair, Possible Bowel Resection Consent for Planned Operative Procedure(s) Verified: Yes Verified Documents: Surgical Consent and History and Physical NPO Status Verified Time NPO: 12:00 ( gatorade per pt. Pt states nothing to eat today) Additional verifications Anesthesia Reactions: No Airway Assessment Mallampati Score:: Class II C-Spine Mobility Assessed: Yes TMJ Mobility Assessed: Yes Dentition: Good Dentition Neurological Assessment Level of Consciousness: Awake, Alert and Appropriate Anesthesia Plan Anesthesia Risk discussed: Yes Anesthesia Plan: Verified ASA Class: III (E) Anesthesia Type: General
--- NOTE | 2024-03-11 16:05 | SUR.OPER ---
1536- spoke to storage facility housekeeper, Marlo in regards to admission of patient. TBA under hospitalist per Dr Sosa.
[2024-03-11] MEDS: ROPIVACAINE 0.5% 30ML VIAL 150 MG (16:38)
[2024-03-11] MEDS: LIDOCAINE 1% 20ML MDV 20 ML (16:38)
--- NOTE | 2024-03-11 16:52 | P.OP_ITS ---
Date of procedure: 03/11/24 Pre-op Diagnosis:: Incarcerated ventral hernia with bowel obstruction Post-op Diagnosis:: Same Procedure performed:: Open primary repair of incarcerated ventral hernia, freeing of intestinal obstruction Surgeon:: Leonel Sosa MD FRONT END DEVELOPER DESIGNER:: Ian Kilpatrick Anesthesia: GETA Estimated blood loss (mL): 15 Operative findings:: She had a relatively small hernia defect above the umbilicus measuring about 2- 1/2 cm with a moderately large hernia sac containing omentum and a short segment of small bowel with obstruction. . Operative note:: Consent was obtained. Patient was taken to the operating room. She was positioned in a supine position. General anesthesia was induced via endotracheal tube. Avila catheter was placed. Abdomen was prepped and draped in the standard surgical fashion. Hernia was palpated above the umbilicus. Skin was marked with skin marker. Incision was made above the umbilicus overlying the palpable subcutaneous mass of the hernia. Careful dissection was carried down through subcutaneous tissues. Hernia sac was dissected free from subcutaneous tissues. Hernia sac was carefully incised. There was an appreciable amount of omentum. There was a loop of bowel and it was somewhat hemorrhagic and dusky focally. Exposure was achieved. Fascia was opened somewhat superiorly and inferiorly and adhesions of omentum to the hernia sac were incised allowing ultimately the omentum to be reduced into the peritoneal cavity leaving the loop of bowel. This appeared somewhat hemorrhagic and mildly dusky the end a short portion and a patch on the antimesenteric side. It was wrapped in a saline Kerlix and observed for some time. After several minutes had shown improvement and it appeared to be more hemorrhagic bruising and not definite necrosis. This was noted and a patch on the antimesenteric border. There was some edema of the adjacent mesentery. There was a tiny rent in the peritoneum of the mesentery and this was closed with a running 3-0 Vicryl. The bowel was observed for some time and initially preparations are being made for possible resection. However it has shown some improvement and it was felt that it was more hemorrhagic irritation as opposed to ischemia. Decision was made to forego bowel resection with the understanding that she could develop a stricture in the future. Loop of bowel was returned to the peritoneal cavity. Anesthesia had placed nasogastric tube and attempt was made to observe good positioning but this was not possible given the nature of the incision and anatomy. The extraneous peritoneum of the hernia sac was excised from surrounding subcutaneous tissues down to fascia using electrocautery and hernia sac was sent off as a specimen. The fascial defect was closed with multiple interrupted #1 Prolene sutures. Subcutaneous tissues were irrigated and hemostasis was achieved. A couple of 2-0 Vicryl sutures were placed in subcutaneous fascia. Skin was closed with graeme. Clean dry sterile dressing was applied. . Condition: stable Disposition: PACU Complications:: None immediately apparent
--- NOTE | 2024-03-11 16:57 | XR_ITS ---
PROCEDURE INFORMATION: Exam: XR Chest Exam date and time: 03/11/2024 5:00 PM Age: 48 years old Clinical indication: Device placement; Ng tube; Prior surgery; Surgery date: Post-operative (0-2 days); Surgery type: Open ventral hernia repair; Additional info: Ng tube confirmation TECHNIQUE: Imaging protocol: Radiologic exam of the chest. Views: 1 view. COMPARISON: CR XR CHEST 2V 03/11/2024 10:52 AM FINDINGS: Tubes, catheters and devices: Nasogastric tube is in good position with tip in the fundus of the stomach and side port in the body of the stomach. Lungs: Unremarkable. No consolidation. Pleural spaces: Unremarkable. No pleural effusion. No pneumothorax. Heart/Mediastinum: Unremarkable. No cardiomegaly. Bones/joints: Unremarkable. IMPRESSION: Nasogastric tube in good position.
--- NOTE | 2024-03-11 16:58 | EXP.ANES.I ---
[facility] Anesthesia Record Part I Anesthesia Record I Intake, IV Amount: 1,800 Hydration: Adequate Estimated blood loss (mL): 20 Urine output (mL): 100 Blood Products used (#): none Blood Pressure: 116/67 SaO2: 95 Pulse Rate: 90 Airway Patency: Patent Respiratory Rate: 16 Temperature: 97.3 F Patient is:: Drowsy and Stable Stable to PACU at:: 16:50
--- NOTE | 2024-03-11 17:11 | SUR.PHASEI ---
1710- Patient awake and conversating at this time, Dressing CDI, no complaints of pain or Nausea at this time. Patient asked this RN to call her mother Ms. Maxwell and update her on her condition. Patient wishes this RN to state that she had emergency surgery and that she is being admitted to room 206. All information repeated back to the patient and verified. The number provided by the patient was [phone]. Number is unfortunately disconnected. Patient does not have any other number for her mother.
--- NOTE | 2024-03-11 17:44 | PC.NURSE ---
arrived by stretcher from surgery
[2024-03-11 18:42] LABS: Troponin I < 0.01 ng/ml (0.00-0.034)
[2024-03-11] MEDS: LACTATED RINGERS 1000ML 1,000 ML 100 ML IV (20:40)
[2024-03-11] MEDS: PHENOL THROAT SPRAY 177 ML BOTTLE MM (20:42)
[2024-03-11] MEDS: diphenhydrAMINE ELIXIR 12.5MG/5ML UDC 12.5 MG PO (20:42)
[2024-03-12] VITALS: BP 109/63; PULSE 82; RESP 18; TEMP 36.8; O2SAT 98
[2024-03-12] MEDS: MORPHINE 4MG/ML SYRINGE 4 MG IV ×2 (03:55→17:48)
[2024-03-12 04:00] VITALS: BP 107/92; PULSE 92; RESP 16; TEMP 36.9; O2SAT 96; BMI 37.5
[2024-03-12 07:18] LABS: Lymphocytes # 1.3 K/mm3 (0.7-4.5); Mean Platelet Volume 10.1 fl (7.4-10.4); Red Cell Distribution Width 13.5 % (11.5-17.5)
[2024-03-12 07:21] LABS: Basophils % 0.3 % (0.1-2.0); Hematocrit 32.6 % (37.0-47.0); Hemoglobin 10.7 g/dL (12.2-16.2); Lymphocytes % 11.8 % (10-50); Mean Corpuscular HGB Conc 32.8 g/dL (31.8-35.4); Mean Corpuscular Hemoglobin 28.8 pg (27.0-31.2); Mean Corpuscular Volume 87.9 fl (81-99); Monocytes # 1.1 K/mm3 (0.1-1.0); Monocytes % 10.2 % (1.7-9.3); Neutrophils # 8.5 K/mm3 (1.8-7.8); Neutrophils % 77.3 % (37.0-80.0); Platelet Count 288 K/mm3 (142-424); Red Blood Count 3.71 M/mm3 (4.20-5.40)
[2024-03-12 07:24] LABS: Albumin Level 3.1 g/dl (3.5-5.0); Chloride 98 mmol/L (98-107); Potassium 4.2 mmoL/L (3.5-5.1); Sodium 129 mmol/L (136-145)
[2024-03-12 07:26] LABS: Blood Urea Nitrogen 20 mg/dl (7-17); Creatinine Clearance Estimated 94 mL/min (50-200); Estimated Glomerular Filt Rate 53 ml/min (>60); GFR (African American) 64 ML/MIN (>60)
[2024-03-12 07:27] LABS: Alanine Aminotransferase 22 U/L (12-78); Albumin/Globulin Ratio 1.2 (1.1-1.8); Alkaline Phosphatase 71 U/L (38-126); Anion Gap 4.2 mEq/L (5-15); Aspartate Amino Transferase 31 U/L (14-36); Bilirubin,Total 0.5 mg/dl (0.2-1.3); Calcium 8.9 mg/dl (8.4-10.2); Carbon Dioxide 31 mmol/L (22.0-30.0); Globulin 2.6 g/dL (1.3-3.2); Glucose 95 mg/dl (74-100); Total Protein,Serum 5.7 g/dl (6.3-8.2)
[2024-03-12 08:00] VITALS: BP 122/80; PULSE 77; RESP 16; TEMP 36.7; O2SAT 96
[2024-03-12] MEDS: FLUTICASONE/SALMETEROL 100/50MCG DISKUS 1 PUFF IH ×2 (08:38→17:54)
[2024-03-12 08:39] VITALS: O2SAT 96
--- NOTE | 2024-03-12 09:39 | EXP.SURG.PN ---
Subjective Patient reports: feels better Exam Data for Last 24 hours Vital signs and Labs for Last 24 Hours: Temp Pulse Resp BP Pulse Ox O2 Del Method 98.1 F 77 16 122/80 96 Room Air 03/12/24 08:00 03/12/24 08:00 03/12/24 08:00 03/12/24 08:00 03/12/24 08:39 03/12/24 08:39 Laboratory Results - last 24 hr 03/11/24 10:30: WBC 12.3 H, RBC 4.41, Hgb 13.0, Hct 38.7, MCV 87.8, MCH 29.5, MCHC 33.6, RDW 13.6, Plt Count 338, MPV 10.1, Neut % (Auto) 83.6 H, Lymph % (Auto) 9.0 L, [place] % (Auto) 7.0, Eos % (Auto) 0.0 L, Baso % (Auto) 0.2, Neut # (Auto) 10.3 H, Lymph # (Auto) 1.1, [place] # (Auto) 0.9, Eos # (Auto) 0.0, Baso # (Auto) 0.0, Sodium 131 L, Potassium 3.9, Chloride 93 L, Carbon Dioxide 33 H, Anion Gap 8.9, BUN 21 H, Creatinine 1.00, Estimated Creat Clear 103, Estimated GFR 59, Est GFR ( Amer) 71, Glucose 115 H, Calcium 9.4, Total Bilirubin 0.6, AST 51 H, ALT 35, Alkaline Phosphatase 100, Troponin I < 0.01, Total Protein 7.2, Albumin 4.1, Globulin 3.1, Albumin/Globulin Ratio 1.3, Lipase 36, Serum HCG, Qual Negative, HIV Ag/Ab Combo Qual Negative 03/11/24 12:25: SARS-CoV-2 (PCR) Not detected, Influenza A Untype (PCR) Not detected, Influenza Type B (PCR) Not detected 03/11/24 12:44: Urine Color Yellow, Urine Appearance Clear, Urine pH 6.5, Ur Specific [place] 1.010, Urine Protein Negative, Urine Glucose (UA) Negative, Urine Ketones Negative, Urine Blood Negative, Urine Nitrate Negative, Urine Bilirubin Negative, Urine Urobilinogen 0.2, Ur Leukocyte Esterase Negative, Urine RBC None, Urine WBC None, Ur Squamous Epith Cells Occasional, Urine Bacteria Trace 03/11/24 18:00: Troponin I < 0.01 03/12/24 07:11: WBC 11.0 H, RBC 3.71 L, Hgb 10.7 L D, Hct 32.6 L, MCV 87.9, MCH 28.8, MCHC 32.8, RDW 13.5, Plt Count 288, MPV 10.1, Neut % (Auto) 77.3, Lymph % (Auto) 11.8, [place] % (Auto) 10.2 H, Eos % (Auto) 0.0 L, Baso % (Auto) 0.3, Neut # (Auto) 8.5 H, Lymph # (Auto) 1.3, [place] # (Auto) 1.1 H, Eos # (Auto) 0.0, Baso # (Auto) 0.0, Sodium 129 L, Potassium 4.2, Chloride 98, Carbon Dioxide 31 H, Anion Gap 4.2 L, BUN 20 H, Creatinine 1.10 H, Estimated Creat Clear 94, Estimated GFR 53 L, Est GFR ( Amer) 64, Glucose 95, Calcium 8.9, Magnesium 2.0, Total Bilirubin 0.5, AST 31 D, ALT 22 D, Alkaline Phosphatase 71, Total Protein 5.7 L, Albumin 3.1 L D, Globulin 2.6, Albumin/Globulin Ratio 1.2 I & O for Last 24 hours: Intake & Output 03/09/24 03/10/24 03/11/24 03/12/24 11:59 11:59 11:59 11:59 Intake Total 2039 / 2040 Output Total 300 / 300 Balance 1740 / 1740 Weight 212 lb 212 lb 0.015 oz Constitutional Constitutional: no acute distress *Routine Respiratory Exam Respiratory: Absent respiratory distress *Routine Cardiovascular Exam Cardiovascular: Absent tachycardia *Routine Abdominal Exam Abdominal: Present soft Comments: Dressing dry and intact. No erythema. Progress Note: A&P Assessment and plan (1) Small bowel obstruction: Status: Acute (2) Hernia, ventral, with obstruction: Status: Acute Assessment and Plan Assessment and Plan for All Diagnoses:: Overall, doing well postoperative day 1 status post open primary repair of incarcerated ventral hernia with ring of intestinal obstruction. Continue nasogastric decompression for now Await return of bowel function Remove Avila catheter Increase ambulation (may benefit from physical therapy consultation)
--- NOTE | 2024-03-12 14:02 | EXP.ACUTE.PN ---
Subjective *Date: 03/12/24 *Time: 17:51 Interval history: Patient complains of some abdominal pain. No nausea or vomiting. Stable on room air. Has not passed gas yet. Requesting something to drink. Medical Exam Vital signs and Labs for Last 24 Hours: Vital Signs Temp Pulse Pulse Resp BP BP Pulse Ox 03/12/24 13:00 03/12/24 11:00 03/12/24 09:00 03/12/24 08:39 96 03/12/24 08:00 03/12/24 08:00 98.1 F 77 16 122/80 96 03/12/24 06:52 03/12/24 05:00 03/12/24 04:00 98.4 F 92 H 16 107/92 L 96 03/12/24 03:00 03/12/24 01:00 03/12/24 00:00 98.3 F 82 18 109/63 L 98 03/11/24 23:20 98.3 F 80 16 119/65 98 03/11/24 23:00 03/11/24 22:20 98.1 F 82 18 103/62 L 98 03/11/24 21:20 98.1 F 68 18 106/63 L 96 03/11/24 21:00 03/11/24 20:20 98.2 F 72 18 112/61 98 03/11/24 20:00 03/11/24 19:50 98.0 F 69 18 108/62 L 97 03/11/24 19:20 98.1 F 71 16 115/65 97 03/11/24 18:50 71 18 101/62 L 95 03/11/24 18:20 98.4 F 69 18 113/65 95 03/11/24 18:05 98 F 80 18 106/60 L 95 03/11/24 17:50 98.1 F 75 18 144/61 H 99 03/11/24 17:35 98.2 F 82 19 147/53 H 98 03/11/24 17:20 98.3 F 75 18 121/73 97 03/11/24 17:10 98.3 F 97 H 18 116/67 97 03/11/24 17:00 98.3 F 96 H 18 120/71 97 03/11/24 16:59 97.3 F L 90 16 116/67 03/11/24 16:50 98.3 F 98 H 18 118/76 96 03/11/24 14:38 98.7 F 79 16 119/79 O2 Del Method 03/12/24 13:00 Room Air 03/12/24 11:00 Room Air 03/12/24 09:00 Room Air 03/12/24 08:39 Room Air 03/12/24 08:00 Room Air 03/12/24 08:00 Room Air 03/12/24 06:52 Room Air 03/12/24 05:00 Room Air 03/12/24 04:00 Room Air 03/12/24 03:00 Room Air 03/12/24 01:00 Room Air 03/12/24 00:00 Room Air 03/11/24 23:20 Room Air 03/11/24 23:00 Room Air 03/11/24 22:20 Room Air 03/11/24 21:20 Room Air 03/11/24 21:00 Room Air 03/11/24 20:20 Room Air 03/11/24 20:00 Room Air 03/11/24 19:50 Room Air 03/11/24 19:20 Room Air 03/11/24 18:50 Room Air 03/11/24 18:20 Room Air 03/11/24 18:05 Room Air 03/11/24 17:50 Room Air 03/11/24 17:35 Room Air 03/11/24 17:20 Room Air 03/11/24 17:10 Room Air 03/11/24 17:00 Room Air 03/11/24 16:59 03/11/24 16:50 Room Air 03/11/24 14:38 Intake and Output 03/11/24 03/12/24 03/12/24 23:59 07:59 15:59 Intake Total 1800 0 240 / 240 Output Total 300 / 300 Balance 1800 / 0 -60 / -60 Intake: Intake, Oral Amount 240 / 240 Intake, Total IV Amount 1800 / 1800 Output: Output, Urine Amount 300 / 300 Other: Number of Unmeasured Voids 0 Weight 96.162 kg Patient Weight 03/12/24 23:59 Weight 96.162 kg Laboratory Results - last 24 hr 03/11/24 18:00: Troponin I < 0.01 03/12/24 07:11: WBC 11.0 H, RBC 3.71 L, Hgb 10.7 L D, Hct 32.6 L, MCV 87.9, MCH 28.8, MCHC 32.8, RDW 13.5, Plt Count 288, MPV 10.1, Neut % (Auto) 77.3, Lymph % (Auto) 11.8, [place] % (Auto) 10.2 H, Eos % (Auto) 0.0 L, Baso % (Auto) 0.3, Neut # (Auto) 8.5 H, Lymph # (Auto) 1.3, [place] # (Auto) 1.1 H, Eos # (Auto) 0.0, Baso # (Auto) 0.0, Sodium 129 L, Potassium 4.2, Chloride 98, Carbon Dioxide 31 H, Anion Gap 4.2 L, BUN 20 H, Creatinine 1.10 H, Estimated Creat Clear 94, Estimated GFR 53 L, Est GFR ( Amer) 64, Glucose 95, Calcium 8.9, Magnesium 2.0, Total Bilirubin 0.5, AST 31 D, ALT 22 D, Alkaline Phosphatase 71, Total Protein 5.7 L, Albumin 3.1 L D, Globulin 2.6, Albumin/Globulin Ratio 1.2 I & O for Labs for Last 24 Hours: Intake & Output 03/09/24 03/10/24 03/11/24 03/12/24 23:59 23:59 23:59 23:59 Intake Total 1799 240 / 240 Output Total 300 / 300 Balance 1799 -60 / -60 Weight 96.162 kg 96.162 kg Constitutional: Present no acute distress, chronically ill appearing and cooperative Head: Present atraumatic and normocephalic ENT: Present normal exam Comment:: NG in left nare Neck: Present normal inspection Respiratory: Present normal respiratory effort; Absent rhonchi, wheezes or crackles Cardiac: Present Reg Rate and Rhythm GI: Present soft and tenderness (Around surgical site); Absent distention, guarding or rebound Comments:: Diminished bowel sounds but present today, more active than yesterday. Extremities: Present normal inspection and full ROM Skin: Present intact; Absent erythema Neuro: Present Grossly Intact, alert, awake and moves all extremities Assessment and Plan *Assessment and plan (1) Small bowel obstruction: Status: Acute Category: Medical Code(s): K56.609 - Unspecified intestinal obstruction, unspecified as to partial versus complete obstruction (2) Hernia, ventral, with obstruction: Status: Acute Category: Medical Code(s): K43.6 - Other and unspecified ventral hernia with obstruction, without gangrene (3) Hypothyroidism: Status: Chronic Qualifiers: Hypothyroidism type: unspecified Qualified Code(s): E03.9 - Hypothyroidism, unspecified Category: Medical Code(s): E03.9 - Hypothyroidism, unspecified (4) HTN (hypertension): Status: Chronic Qualifiers: Hypertension type: primary hypertension Qualified Code(s): I10 - Essential (primary) hypertension Category: Medical Code(s): I10 - Essential (primary) hypertension (5) Seizures: Status: Chronic Category: Medical Code(s): R56.9 - Unspecified convulsions (6) Schizo-affective schizophrenia: Status: Chronic Category: Medical Code(s): F25.9 - Schizoaffective disorder, unspecified Plan 48-year-old female with schizoaffective/schizophrenia. Presented with a week of nausea vomiting and concern for obstruction. Workup in the ER concerning for incarcerated hernia. Surgery consulted and taken to the OR for treatment. Discussed case with ER physician and surgeon, request admission for monitoring after surgery and awaiting resumption of bowel function. I agreed to admit for further treatment. No bowel movement or gas as of yet. Surgery assisting with care. Continues to require inpatient management. Problems addressed as follows: Bowel obstruction Ventral hernia -Taken to the OR 03/11/2024. Hernia repaired and incarceration reduced. No resection. Continue NG. Discussed case with surgery this morning. Slow advancement of diet if begins to have bowel movements and passed gas. Continue n.p.o. for now. -Continue LR at 100 cc an hour. -Pain control with morphine IV 4 mg as needed every 4 hours. Monitor for toxicity -White count down slightly to 11. Hemoglobin 11. Kidney function normal with BUN 20, creatinine 1.1. Repeat CBC, CMP, magnesium ordered for the morning. Hypothyroid: Continue levothyroxine 75 mcg daily. TSH pending Hypertension: Well-controlled. Will hold blood pressure meds at this time, consider as needed IV enalapril if blood pressure above 180/100. Holding spironolactone and torsemide Hyperlipidemia: Holding statin pending resumption of p.o. intake Schizoaffective/schizophrenia: On paliperidone IM and IM pegylated aripiprazole monthly. Mood appropriate, cooperative. Obesity complicates all aspects of her care. Discontinue Avila today. Encouraged to ambulate and get out of bed. PT and OT ordered for the morning. Full code Holding anticoagulation N.p.o., maintenance fluids with LR at 100 cc an hour
[2024-03-12 16:00] VITALS: BP 115/70; PULSE 94; RESP 20; TEMP 37.3; O2SAT 98
[2024-03-12 20:00] VITALS: BP 112/63; PULSE 87; RESP 16; TEMP 37; O2SAT 95
[2024-03-12] MEDS: PROMETHAZINE HCL 25MG/ML 1ML VIAL 12.5 MG IV (21:12)
[2024-03-12] MEDS: SODIUM CHLORIDE 0.9% 25ML BAG 25 ML IV (21:12)
[2024-03-13] MEDS: MORPHINE 4MG/ML SYRINGE 4 MG IV (02:17)
[2024-03-13] MEDS: SODIUM CHLORIDE 0.9% 25ML BAG 25 ML IV ×3 (02:18→22:40)
[2024-03-13] MEDS: PROMETHAZINE HCL 25MG/ML 1ML VIAL 12.5 MG IV ×3 (02:18→22:40)
[2024-03-13 04:00] VITALS: BP 115/85; PULSE 76; RESP 16; TEMP 37.2; O2SAT 96; BMI 39.3
[2024-03-13] MEDS: FLUTICASONE/SALMETEROL 100/50MCG DISKUS 1 PUFF IH ×2 (06:30→18:21)
--- NOTE | 2024-03-13 06:53 | EXP.ANES.II ---
[facility] Anesthesia Record Part II Anesthesia Record Part II Discharge Time: 17:20 Destination: Medical Surgical Department PACU nurse assessment reviewed?: Yes Patient Condition:: Good Anesthesia Complications:: None Swallowing reflex intact?: Yes Airway Patency: Patent Cyanosis?: No Blood Pressure: 121/73 SaO2: 97 Respiratory Rate: 18 Pulse Rate: 75 Temperature: 98.3 F Mental Status: Alert & Oriented Pain level:: 0 Nausea and/or vomitting:: None Intake, IV Amount: 0 Hydration: Adequate
[2024-03-13 06:54] VITALS: BP 121/73; PULSE 75; RESP 18; TEMP 36.8; O2SAT 97
[2024-03-13 07:15] LABS: Albumin Level 2.9 g/dl (3.5-5.0); Chloride 102 mmol/L (98-107)
[2024-03-13 07:16] LABS: Sodium 135 mmol/L (136-145)
[2024-03-13 07:18] LABS: Alanine Aminotransferase 17 U/L (12-78); Alkaline Phosphatase 68 U/L (38-126); Aspartate Amino Transferase 30 U/L (14-36); Bilirubin,Total 0.5 mg/dl (0.2-1.3); Blood Urea Nitrogen 15 mg/dl (7-17); Carbon Dioxide 29 mmol/L (22.0-30.0); Creatinine Clearance Estimated 135 mL/min (50-200); Estimated Glomerular Filt Rate 76 ml/min (>60); GFR (African American) 92 ML/MIN (>60)
[2024-03-13 07:19] LABS: Albumin/Globulin Ratio 1.1 (1.1-1.8); Calcium 8.4 mg/dl (8.4-10.2); Globulin 2.7 g/dL (1.3-3.2); Glucose 67 mg/dl (74-100); Total Protein,Serum 5.6 g/dl (6.3-8.2)
[2024-03-13 07:20] LABS: Basophils % 0.4 % (0.1-2.0); Eosinophils # 0.1 K/mm3 (0.0-0.4); Hemoglobin 9.8 g/dL (12.2-16.2); Lymphocytes # 1.7 K/mm3 (0.7-4.5); Lymphocytes % 23.3 % (10-50); Mean Corpuscular HGB Conc 32.7 g/dL (31.8-35.4); Mean Corpuscular Hemoglobin 29.1 pg (27.0-31.2); Mean Platelet Volume 11.6 fl (7.4-10.4); Monocytes # 0.9 K/mm3 (0.1-1.0); Monocytes % 11.6 % (1.7-9.3); Neutrophils # 4.6 K/mm3 (1.8-7.8); Neutrophils % 63.4 % (37.0-80.0); Platelet Count 173 K/mm3 (142-424); Red Blood Count 3.37 M/mm3 (4.20-5.40); Red Cell Distribution Width 13.8 % (11.5-17.5); White Blood Count 7.3 K/mm3 (4.8-10.8)
--- NOTE | 2024-03-13 07:52 | P.PN_ITS ---
Subjective *Date: 03/13/24 *Time: 20:07 Interval history: No complaints this morning. Starting to feel like her bowels are active. Denies nausea or vomiting. Stable on room air. Requesting to drink today. Afebrile. Medical Exam Vital signs and Labs for Last 24 Hours: Vital Signs Temp Pulse Resp BP Pulse Ox O2 Del Method 03/13/24 07:00 Room Air 03/13/24 06:54 18 03/13/24 05:00 Room Air 03/13/24 04:00 98.9 F 76 16 115/85 96 Room Air 03/13/24 03:00 Room Air 03/13/24 01:00 Room Air 03/13/24 00:00 Room Air 03/12/24 23:00 Room Air 03/12/24 21:00 Room Air 03/12/24 20:00 Room Air 03/12/24 20:00 98.6 F 87 16 112/63 95 Room Air 03/12/24 18:06 Room Air 03/12/24 18:04 Room Air 03/12/24 16:44 Room Air 03/12/24 16:00 99.1 F 94 H 20 115/70 98 Room Air 03/12/24 15:00 Room Air 03/12/24 13:00 Room Air 03/12/24 11:00 Room Air 03/12/24 09:00 Room Air 03/12/24 08:39 96 Room Air 03/12/24 08:00 Room Air 03/12/24 08:00 98.1 F 77 16 122/80 96 Room Air Intake and Output 03/12/24 03/12/24 03/13/24 15:59 23:59 07:59 Intake Total 0 / 0 Output Total 0 / 0 Balance 0 / 0 Intake: Intake, Oral Amount 0 / 0 Intake, Total IV Amount 0 / 0 Output: Output, Urine Amount 0 / 0 Other: Number of Unmeasured Voids 1 Weight 100.607 kg Patient Weight 03/13/24 23:59 Weight 100.607 kg Laboratory Results - last 24 hr 03/13/24 06:28: WBC 7.3 D, RBC 3.37 L, Hgb 9.8 L, Hct 30.0 L, MCV 89.0, MCH 29.1, MCHC 32.7, RDW 13.8, Plt Count 173 D, MPV 11.6 H, Neut % (Auto) 63.4, Lymph % (Auto) 23.3, [place] % (Auto) 11.6 H, Eos % (Auto) 1.0, Baso % (Auto) 0.4, Neut # (Auto) 4.6, Lymph # (Auto) 1.7, [place] # (Auto) 0.9, Eos # (Auto) 0.1, Baso # (Auto) 0.0, Sodium 135 L, Potassium 4.0, Chloride 102, Carbon Dioxide 29, Anion Gap 8.0, BUN 15, Creatinine 0.80 D, Estimated Creat Clear 135, Estimated GFR 76, Est GFR ( Amer) 92 D, Glucose 67 L D, Calcium 8.4, Magnesium 2.0, Total Bilirubin 0.5, AST 30, ALT 17, Alkaline Phosphatase 68, Total Protein 5.6 L, Albumin 2.9 L, Globulin 2.7, Albumin/Globulin Ratio 1.1 I & O for Labs for Last 24 Hours: Intake & Output 03/10/24 03/11/24 03/12/24 03/13/24 23:59 23:59 23:59 23:59 Intake Total 1800 / 2040 240 / 240 0 / 0 Output Total 300 / 300 0 / 0 Balance 1800 / 2040 -60 / -60 0 / 0 Weight 96.162 kg 96.162 kg 100.607 kg Constitutional: Present no acute distress, chronically ill appearing and cooperative Head: Present atraumatic and normocephalic ENT: Present normal exam Comment:: NG in left nare Neck: Present normal inspection Respiratory: Present normal respiratory effort; Absent rhonchi, wheezes or crackles Cardiac: Present Reg Rate and Rhythm GI: Present soft and tenderness (Around surgical site); Absent distention, guarding or rebound Comments:: Diminished bowel sounds but present today, more active than yesterday. Extremities: Present normal inspection and full ROM Skin: Present intact; Absent erythema Neuro: Present Grossly Intact, alert, awake and moves all extremities Assessment and Plan *Assessment and plan (1) Small bowel obstruction: Status: Acute Category: Medical Code(s): K56.609 - Unspecified intestinal obstruction, unspecified as to partial versus complete obstruction (2) Hernia, ventral, with obstruction: Status: Acute Category: Medical Code(s): K43.6 - Other and unspecified ventral hernia with obstruction, without gangrene (3) Hypothyroidism: Status: Chronic Qualifiers: Hypothyroidism type: unspecified Qualified Code(s): E03.9 - Hypothyroidism, unspecified Category: Medical Code(s): E03.9 - Hypothyroidism, unspecified (4) HTN (hypertension): Status: Chronic Qualifiers: Hypertension type: primary hypertension Qualified Code(s): I10 - Essential (primary) hypertension Category: Medical Code(s): I10 - Essential (primary) hypertension (5) Seizures: Status: Chronic Category: Medical Code(s): R56.9 - Unspecified convulsions (6) Schizo-affective schizophrenia: Status: Chronic Category: Medical Code(s): F25.9 - Schizoaffective disorder, unspecified Plan 48-year-old female with schizoaffective/schizophrenia. Presented with a week of nausea vomiting and concern for obstruction. Workup in the ER concerning for incarcerated hernia. Surgery consulted and taken to the OR for treatment. Discussed case with ER physician and surgeon, request admission for monitoring after surgery and awaiting resumption of bowel function. I agreed to admit for further treatment. No bowel movement or gas as of yet. Surgery assisting with care. Continues to require inpatient management. Problems addressed as follows: Bowel obstruction Ventral hernia -Taken to the OR 03/11/2024. Hernia repaired and incarceration reduced. No resection. Continue NG. Discussed case with surgery this morning. Slow advancement of diet if begins to have bowel movements and passed gas. Continue n.p.o. for now. -Glucose low this morning on morning labs at 67. Will initiate D5 LR at 75 cc an hour. -Pain control with morphine IV 4 mg as needed every 4 hours. Monitor for toxicity -White count normalized today at 7.3. Hemoglobin 9.8. Creatinine 0.8, BUN 15. Electrolytes normal with potassium of 4 and mag of 2. Repeat CBC, CMP, magnesium ordered for the morning. Hypothyroid: Continue levothyroxine 75 mcg daily. TSH pending Hypertension: Well-controlled. Will hold blood pressure meds at this time, consider as needed IV enalapril if blood pressure above 180/100. Holding spironolactone and torsemide Hyperlipidemia: Holding statin pending resumption of p.o. intake Schizoaffective/schizophrenia: On paliperidone IM and IM pegylated aripiprazole monthly, due for aripiprazole today, dose brought from her personal correction. Will administer.. Mood appropriate, cooperative. Obesity complicates all aspects of her care. Encouraged to ambulate and get out of bed. PT and OT ordered for the morning. Full code Holding anticoagulation N.p.o., maintenance fluids with D5 LR 75 cc an hour
[2024-03-13 08:00] VITALS: BP 122/62; PULSE 96; RESP 17; TEMP 37.7; O2SAT 98
[2024-03-13] MEDS: DEXTROSE 5%-LACTATED RINGERS 1,000 ML 75 ML IV ×2 (09:34→22:45)
--- NOTE | 2024-03-13 09:42 | HMH.PTEV ---
Physical Therapy Evaluation Rehab PT IP Evaluation Start: 03/12/24 17:26 Freq: ONCE Status: Active Protocol: Document 03/13/24 09:33 [facility] (Rec: 03/13/24 09:38 VICTOR MANUEL [id number]) Subjective/History History History Per H&P: Ms. Caceres is a 48- year-old female with schizophrenia, hypothyroid, hypertension who lives at a personal longterm in [place] . She presented with 5 to 7 days of worsening abdominal pain, nausea and vomiting. Has not had a bowel movement 4 to 5 days. Denies any fever. States her abdomen has been feeling worse and more bloated . Workup in the ER with CT shows small bowel obstruction due to anterior abdominal wall hernia just above the umbilicus. Surgery was consulted and patient was taken to the OR for emergent surgery and reduction of incarcerated hernia. Medicine consulted for admission after the procedure. Subjective Subjective Pt reports she is usually IND with her mobility without use of an AD. Pt lives in a personal longterm. New diagnosis of cancer in past 12 No months? Rehab PT IP Eval Objective Appearance Patient Behavior Appropriate,Cooperative Patient Orientation Person,Place Difficulty following instructions none Speech Pattern Clear Ambulation Patient Able to Ambulate Yes Ambulation Observation IP General Gait Pattern Observation Wide Based Gait Ambulation Distance (feet) 20 Ambulation Assistive Device None Ambulation Ability Supervision/Stand by Balance Ability to Arise Able, uses arms to help Sitting Balance Steady, safe Standing Balance Steady, wide stance Dynamic Sitting Balance Ability Good Dynamic Standing Balance Ability Good Transfers Bed Transfer Ability Supervision/Stand by Sit to Stand Bed Transfer Ability Supervision/Stand by Rehab PT IP prob,goals,plan Problems Date of Evaluation: 03/13/24 PT IP Problems Gait,Other Other Pt Problem endurance Rehab Potential Rehab Potential Good Plan PT Intervention Plan Gait,Therapeutic Exercise Other Intervention Plan 1-2 times PT Plan Frequency Daily Duration LOS Discharge Goals Bed Transfer Ability Independent Sit to Stand Chair Transfer Ability Independent Ambulation Assistive Device None Ambulation Distance (feet) 100 Discharge Plan PT Discharge Plan Pt presents below baseline in endurance and strength s/p abdominal surgery on 03/11/24. PT recommending pt d/c to personal longterm. Pt would benefit from acute care PT while at [facility] to improve endurance and strength. Eval Complexity Eval Charge Codes 55648 - Moderate Complexity PHYSICIAN CERTIFICATION: I certify the specified therapy services for Stephanie Morris are required, authorized, and reviewed every 30 days.
--- NOTE | 2024-03-13 09:43 | HMH.OTEV ---
OT Inpatient Evaluation Rehab OT IP Evaluation Start: 03/12/24 17:26 Freq: ONCE Status: Active Protocol: Document 03/13/24 09:39 [facility] (Rec: 03/13/24 09:43 [facility] [id number]) Rehab OT IP Assessment Subjective History Pt oriented x 3 on arrival. Pt agreeable to engage in therapy evaluation. Pt admitted on 03/11/24 due to hernia. History and physical: Per H&P: Ms. Caceres is a 48- year-old female with schizophrenia, hypothyroid, hypertension who lives at a personal mcc in [place] . She presented with 5 to 7 days of worsening abdominal pain, nausea and vomiting. Has not had a bowel movement 4 to 5 days. Denies any fever. States her abdomen has been feeling worse and more bloated . Workup in the ER with CT shows small bowel obstruction due to anterior abdominal wall hernia just above the umbilicus. Surgery was consulted and patient was taken to the OR for emergent surgery and reduction of incarcerated hernia. Medicine consulted for admission after the procedure. Subjective I am still pretty sore. Prior to being in the hospital , pt lived at personal mcc in [place]. Pt claims normally she is independent with all ADLs. She is normally able to complete functional transfers independently without AE. Pt is dependent upon staff for completion of all IADLs. Objective Patient Orientation Person,Birthday Right Upper Extremity Gross ROM WFL Left Upper Extremity Gross ROM WFL Bed Mobility bed mobility-scooting,bed mobility - supine/sit Assist Level Contact Guard/Hand Hold Transfer Training Sit/Stand Transfer Assist Level Contact Guard/Hand Hold Chair Transfer Ability Contact Guard/Hand Hold Chair Transfer Technique Sit to/from Ambulatory Rehab OT IP prob,goals,plan Problems Date of Evaluation: 03/13/24 Rehab Potential Rehab Potential Good Equipment Needs Assistive Devices Rolling / Wheeled Walker Plan OT intervention Plan Bed Mobility,Transfers,Balance ,Self care,Safety,Therapeutic Exercise OT Plan Frequency Daily Duration LOS Discharge Goals Bed Mobility Ability Standby Assistance Sit to Stand Chair Transfer Ability Supervision/Stand by Chair Transfer Ability Supervision/Stand by Chair Transfer Technique Sit to/from Ambulatory Chair Transfer Assistive Devices Rolling Walker Lower Body Dressing Ability Minimal Assistance Upper Body Dressing Ability Contact Guard Bathing Ability Minimal Assistance Performing Toilet Hygiene Ability Minimal Assistance Overall Commode/Toilet Transfer Ability Minimal Assistance Commode/Toilet Transfer Technique Sit to/from Ambulatory Commode/Toilet Transfer Assistive Grab Bars Devices Oral Care Assist Standby Assistance Discharge Plan OT Discharge Plan Pt will continue to be seen for OT services while at [facility]. Pt can return to personal mcc once she is medically stable per physician . Therapist recommends OT evaluation upon returning home to personal mcc for continued skilled therapy services. Continued skilled therapy is important in order for patient to improve strength, safety, endurance, ADL independence and functional transfers to reach PLOF. Eval Complexity Eval Charge Codes 27919 - Moderate Complexity PHYSICIAN CERTIFICATION: I certify the specified therapy services for Stephanie Caceres are required, authorized, and reviewed every 30 days.
--- NOTE | 2024-03-13 09:49 | EXP.SURG.PN ---
Subjective Patient reports: no new complaints, no flatus and no bowel movement Exam Data for Last 24 hours Vital signs and Labs for Last 24 Hours: Temp Pulse Resp BP Pulse Ox O2 Del Method 99.8 F H 96 H 17 122/62 98 Room Air 03/13/24 08:00 03/13/24 08:00 03/13/24 08:00 03/13/24 08:00 03/13/24 08:00 03/13/24 08:00 Laboratory Results - last 24 hr 03/13/24 06:28: WBC 7.3 D, RBC 3.37 L, Hgb 9.8 L, Hct 30.0 L, MCV 89.0, MCH 29.1, MCHC 32.7, RDW 13.8, Plt Count 173 D, MPV 11.6 H, Neut % (Auto) 63.4, Lymph % (Auto) 23.3, [place] % (Auto) 11.6 H, Eos % (Auto) 1.0, Baso % (Auto) 0.4, Neut # (Auto) 4.6, Lymph # (Auto) 1.7, [place] # (Auto) 0.9, Eos # (Auto) 0.1, Baso # (Auto) 0.0, Sodium 135 L, Potassium 4.0, Chloride 102, Carbon Dioxide 29, Anion Gap 8.0, BUN 15, Creatinine 0.80 D, Estimated Creat Clear 135, Estimated GFR 76, Est GFR ( Amer) 92 D, Glucose 67 L D, Calcium 8.4, Magnesium 2.0, Total Bilirubin 0.5, AST 30, ALT 17, Alkaline Phosphatase 68, Total Protein 5.6 L, Albumin 2.9 L, Globulin 2.7, Albumin/Globulin Ratio 1.1 I & O for Last 24 hours: Intake & Output 03/10/24 03/11/24 03/12/24 03/13/24 11:59 11:59 11:59 11:59 Intake Total 2040 / 2040 0 / 0 Output Total 300 / 300 0 / 0 Balance 1740 / 1740 0 / 0 Weight 212 lb 212 lb 0.015 oz 221 lb 12.8 oz Constitutional Constitutional: no acute distress *Routine Respiratory Exam Respiratory: Absent respiratory distress *Routine Cardiovascular Exam Cardiovascular: Absent tachycardia *Routine Abdominal Exam Abdominal: Present soft Comments: Incision clean, dry, and intact. No erythema. Progress Note: A&P Assessment and plan (1) Small bowel obstruction: Status: Acute (2) Hernia, ventral, with obstruction: Status: Acute Assessment and Plan Assessment and Plan for All Diagnoses:: Overall, doing well postoperative day 2 status post open primary repair of incarcerated ventral hernia with ring of intestinal obstruction. Continue nasogastric decompression for now Await return of bowel function Continue to increase ambulation Continue PT/OT
[2024-03-13 11:08] LABS: HCV Ab Non Reactive (Non Reactive)
[2024-03-13 11:08] LABS: HBsAg Screen Negative (Negative); HCV Ab Non Reactive (Non Reactive); Hep A Ab, IGM Negative (Negative); Hep B Core Ab, IgM Negative (Negative)
[2024-03-13 12:46] VITALS: BMI 39.2
[2024-03-13] MEDS: ARIPIPRAZOLE 1 EACH PO (14:39)
[2024-03-13 15:55] VITALS: BP 125/65; PULSE 92; RESP 18; TEMP 37.9; O2SAT 98
[2024-03-13] MEDS: ACETAMINOPHEN 325MG TAB 650 MG PO ×2 (16:40→23:52)
[2024-03-13] MEDS: NICOTINE 21MG/24HR PATCH 21 MG TD (16:40)
--- NOTE | 2024-03-13 17:26 | PC.NURSE ---
pt remains on room air this shift. NG tube remains @ 55 and suction is @ 50. pt is A&Ox4, however responses to some questions are inappropriate and pt does repeat herself quite frequently. I do believe this is pt baseline. facility from which pt is from called this RN earlier in shift to report that she is supposed ot get her abilify injection today as she gets the medication ever 28 days. this RN instructed personnel to bring in medication and give the medication to this RN to have medication ordered and packaged and sent to pharmacy. pt medication was packaged and sent to pharmacy and entered into MAR. IM abilify was given per order. pt has had some greenish colored output from NG this shift. pt has been ambulating to and from bathroom w/ sb assitance. no new orders at this time. call light within reach.
[2024-03-13 20:00] VITALS: BP 111/65; PULSE 84; RESP 14; TEMP 37.4; O2SAT 96
--- NOTE | 2024-03-13 20:23 | PC.NURSE ---
While assessing patient, NG tube was at 30 to R nare, advanced back to 55, KUB ordered for placement.
--- NOTE | 2024-03-13 20:26 | XR_ITS ---
PROCEDURE INFORMATION: Exam: XR Abdomen Exam date and time: 03/13/2024 10:02 PM Age: 48 years old Clinical indication: Device placement; Gi device; Nasogastric tube; Additional info: Ng placement TECHNIQUE: Imaging protocol: Radiologic exam of the abdomen. Views: Frontal supine view of the abdomen. 1 View. COMPARISON: CT ABDOMEN PELVIS W CON 03/11/2024 12:18 PM FINDINGS: Tubes, catheters and devices: Nasogastric tube is noted with its side port below the GE junction. The tip projects over the proximal mid gastric body and is directed to the right. Wound clips project over the lower abdomen. Gastrointestinal tract: There are dilated loops of small bowel noted within the mid abdomen. Bones/joints: Unremarkable. IMPRESSION: 1. Nasogastric tube side port is below the GE junction. 2. There are a few air dilated loops of small bowel in the central abdomen.
[2024-03-14] VITALS (7 sets, daily range): BP systolic 117–139; BP diastolic 66–82; PULSE 86–100; RESP 14–18; TEMP 37–38; O2SAT 97–99; BMI 39.5
[2024-03-14] MEDS: PIPERACILLIN/TAZO 3.375 GM in 0.9 % SODIUM CHLORIDE 50 ML IV ×4 (01:47→20:02)
--- NOTE | 2024-03-14 01:59 | P.EN_ITS ---
Problem fever: Nursing called living of the patient had a fever. Patient had received her Abilify. Question whether this was causing a fever patient was given Tylenol had no effect several hours later temperature still remained at 100.4, . No signs of surgical difficulty abdomen surgical site looks good the abdomen is not particularly tender but the patient has developed a slight cough with runny nose sniffle and some sputum Exam: Patient is resting comfortably in no respiratory distress is noted no abdominal pain. Question whether the source of the fever being medication vers us related to surgery versus being reexposed to something new in the hospital. Plan: Since the patient is not terribly uncomfortable with asked the staff they did give her Tylenol sometime around midnight not to give anything else for fever control. Want to see if it is going to continue to climb.. Due to the fact she is postsurgery grabbing blood cultures urine culture and now that she is coughing a sputum culture., Will give a first dose of Zosyn after the cultures are drawn. Also will recheck for any flu or COVID per nasal swab since there has been so much in our community lately. Labs are ordered for the morning will look for an increase in white count.
[2024-03-14 03:43] LABS: Coronavirus 19, PCR Not Detected (NotDetected); Human Rhinovirus Not Detected (NotDetected); Influenza A, PCR Not Detected (NotDetected); Influenza B, PCR Not Detected (NotDetected); Respiratory Syncytial Virus Not Detected (NotDetected)
[2024-03-14] MEDS: FLUTICASONE/SALMETEROL 100/50MCG DISKUS 1 PUFF IH ×2 (06:10→20:34)
--- NOTE | 2024-03-14 06:12 | PC.NURSE ---
Patient alert and oriented, very polite. Standby assist to restroom, BM tonight in brief, very large. Fever at midnight, treated with PRN medication with no relief, Justin aware, resolved at 0400 vitals. NG to R nare at 55, to LWS at 50, draining light greenish fluid. Intermittent cough throughout night. Patient is producing sputum with cough but has not got sample in specimen cup at this time. IV abx given. No complaints from patient. Call light in reach.
--- NOTE | 2024-03-14 06:24 | PC.NURSE ---
Alert and oriented, very polite. Fever overnight, Justin aware, resolved at 0400 vitals. Blood and urine cultures obtained. IV abx started. Intermittent cough, sputum noted, sputum needed for culture still at this time. NG to R nare @ 55, 300ml of light green fluid noted. Ambulates to the restroom standby assist, large BM tonight. Midline incision, open to air, CDI. Bowel sounds active. Room air. No complaints from patient. Call light in reach.
--- NOTE | 2024-03-14 06:40 | EXP.SURG.PN ---
Subjective Patient reports: bowel movement Narrative: The patient is currently resting. Per nursing staff the patient recently had a large bowel movement. Exam Data for Last 24 hours Vital signs and Labs for Last 24 Hours: Temp Pulse Resp BP Pulse Ox O2 Del Method 98.6 F 90 18 139/82 97 Room Air 03/14/24 04:00 03/14/24 04:00 03/14/24 04:00 03/14/24 04:00 03/14/24 04:00 03/14/24 05:00 Laboratory Results - last 24 hr 03/11/24 06:00: Hepatitis A IgM Ab Negative, Hep Bs Antigen Negative, Hep B Core IgM Ab Negative, Hepatitis C Antibody Non reactive, HCV RNA PCR Test Info Comment 03/11/24 10:30: Hepatitis C Antibody Non reactive 03/13/24 06:28: WBC 7.3 D, RBC 3.37 L, Hgb 9.8 L, Hct 30.0 L, MCV 89.0, MCH 29.1, MCHC 32.7, RDW 13.8, Plt Count 173 D, MPV 11.6 H, Neut % (Auto) 63.4, Lymph % (Auto) 23.3, [place] % (Auto) 11.6 H, Eos % (Auto) 1.0, Baso % (Auto) 0.4, Neut # (Auto) 4.6, Lymph # (Auto) 1.7, [place] # (Auto) 0.9, Eos # (Auto) 0.1, Baso # (Auto) 0.0, Sodium 135 L, Potassium 4.0, Chloride 102, Carbon Dioxide 29, Anion Gap 8.0, BUN 15, Creatinine 0.80 D, Estimated Creat Clear 135, Estimated GFR 76, Est GFR ( Amer) 92 D, Glucose 67 L D, Calcium 8.4, Magnesium 2.0, Total Bilirubin 0.5, AST 30, ALT 17, Alkaline Phosphatase 68, Total Protein 5.6 L, Albumin 2.9 L, Globulin 2.7, Albumin/Globulin Ratio 1.1 03/14/24 02:00: SARS-CoV-2 (PCR) Not detected, Influenza Type A (PCR) Not detected, Influenza Type B (PCR) Not detected, RSV (PCR) Not detected, Rhinovirus (PCR) Not detected I & O for Last 24 hours: Intake & Output 03/11/24 03/12/24 03/13/24 03/14/24 11:59 11:59 11:59 11:59 Intake Total 2039 / 2039 0 / 0 762 / 762 Output Total 300 / 300 300 / 300 320 / 320 Balance 1740 / 1740 -300 / -300 442 / 442 Weight 212 lb 212 lb 0.015 oz 221 lb 12.8 oz 223 lb 4.8 oz Constitutional Constitutional: no acute distress Comments: Patient currently sleeping; therefore, further examination deferred Progress Note: A&P Assessment and plan (1) Small bowel obstruction: Status: Acute (2) Hernia, ventral, with obstruction: Status: Acute Assessment and Plan Assessment and Plan for All Diagnoses:: Overall, doing well postoperative day 3 status post open primary repair of incarcerated ventral hernia with ring of intestinal obstruction. Large bowel movement noted per nursing staff. Okay from surgical standpoint to remove nasogastric tube and very slowly advance diet Continue to increase ambulation Continue PT/OT
[2024-03-14 07:13] LABS: Basophils % 0.2 % (0.1-2.0); Eosinophils # 0.1 K/mm3 (0.0-0.4); Eosinophils % 1.6 % (0.1-12.0); Hematocrit 31.8 % (37.0-47.0); Hemoglobin 10.3 g/dL (12.2-16.2); Lymphocytes # 1.1 K/mm3 (0.7-4.5); Lymphocytes % 13.1 % (10-50); Mean Corpuscular HGB Conc 32.4 g/dL (31.8-35.4); Mean Corpuscular Hemoglobin 28.9 pg (27.0-31.2); Mean Corpuscular Volume 89.1 fl (81-99); Mean Platelet Volume 10.3 fl (7.4-10.4); Monocytes # 0.9 K/mm3 (0.1-1.0); Monocytes % 10.9 % (1.7-9.3); Neutrophils # 6.2 K/mm3 (1.8-7.8); Platelet Count 285 K/mm3 (142-424); Red Blood Count 3.57 M/mm3 (4.20-5.40); Red Cell Distribution Width 13.4 % (11.5-17.5); White Blood Count 8.3 K/mm3 (4.8-10.8)
[2024-03-14 07:26] LABS: Chloride 102 mmol/L (98-107); Sodium 133 mmol/L (136-145)
[2024-03-14 07:27] LABS: Potassium 4.2 mmoL/L (3.5-5.1)
[2024-03-14 07:29] LABS: Alanine Aminotransferase 15 U/L (12-78); Albumin/Globulin Ratio 1.1 (1.1-1.8); Alkaline Phosphatase 73 U/L (38-126); Anion Gap 6.2 mEq/L (5-15); Aspartate Amino Transferase 28 U/L (14-36); Bilirubin,Total 0.5 mg/dl (0.2-1.3); Blood Urea Nitrogen 11 mg/dl (7-17); Carbon Dioxide 29 mmol/L (22.0-30.0); Creatinine Clearance Estimated 121 mL/min (50-200); Estimated Glomerular Filt Rate 67 ml/min (>60); GFR (African American) 81 ML/MIN (>60); Globulin 2.7 g/dL (1.3-3.2); Total Protein,Serum 5.7 g/dl (6.3-8.2)
[2024-03-14 07:30] LABS: Calcium 8.6 mg/dl (8.4-10.2); Glucose 96 mg/dl (74-100)
--- NOTE | 2024-03-14 07:45 | P.PN_ITS ---
Subjective *Date: 03/14/24 *Time: 12:00 Interval history: Patient has had temperatures to 100.4 overnight. Of note she received her Abilify Maintena yesterday. Fever is a side effect of this medication. No focal signs of infection. Empiric workup overnight for possible infection with cultures obtained and started on empiric antibiotics. Patient otherwise appears well. Ambulating this morning. Denies any nausea or vomiting. Had bowel movement overnight. Stable on room air Medical Exam Vital signs and Labs for Last 24 Hours: Vital Signs Temp Pulse Resp BP Pulse Ox O2 Del Method 03/14/24 06:53 Room Air 03/14/24 05:00 Room Air 03/14/24 04:00 98.6 F 90 18 139/82 97 Room Air 03/14/24 03:00 Room Air 03/14/24 01:17 100.4 F H 03/14/24 01:00 Room Air 03/14/24 00:00 100.4 F H 03/13/24 22:47 Room Air 03/13/24 21:00 Room Air 03/13/24 20:00 Room Air 03/13/24 20:00 99.4 F 84 14 111/65 96 Room Air 03/13/24 17:00 Room Air 03/13/24 15:55 100.2 F H 92 H 18 125/65 98 Room Air 03/13/24 14:59 Room Air 03/13/24 13:00 Room Air 03/13/24 11:00 Room Air 03/13/24 09:00 Room Air 03/13/24 08:00 Room Air 03/13/24 08:00 99.8 F H 96 H 17 122/62 98 Room Air Intake and Output 03/13/24 03/13/24 03/14/24 15:59 23:59 07:59 Intake Total 0 / 0 0 / 0 762 / 762 Output Total 300 / 420 120 / 420 200 / 200 Balance -300 / -420 -120 / -420 562 / 562 Intake: Intake, Oral Amount 0 / 0 0 / 0 Intake, Total IV Amount 762 / 762 Dextrose 5%-Lactated Ringers 1, 712 / 712 000 ml @ 75 mls/hr IV .[id number] [facility] Rx#:[id number] Piperacillin/Tazo 3.375 gm In 0 50 / 50 .9 % Sodium Chloride 50 ml @ 100 mls/hr IV Q8H [facility] Rx#: [id number] Output: Output, Urine Amount 0 / 0 0 / 0 200 / 200 Output, Gastric Drainage Amount 300 / 420 120 / 420 Right Nare 300 / 420 120 / 420 Other: Number of Unmeasured Voids 1 1 1 Number of Bowel Movements 1 Weight 100.6 kg 101.287 kg Patient Weight 03/14/24 23:59 Weight 101.287 kg Laboratory Results - last 24 hr 03/11/24 06:00: Hepatitis A IgM Ab Negative, Hep Bs Antigen Negative, Hep B Core IgM Ab Negative, Hepatitis C Antibody Non reactive, HCV RNA PCR Test Info Comment 03/11/24 10:30: Hepatitis C Antibody Non reactive 03/14/24 02:00: SARS-CoV-2 (PCR) Not detected, Influenza Type A (PCR) Not detected, Influenza Type B (PCR) Not detected, RSV (PCR) Not detected, Rhinovirus (PCR) Not detected 03/14/24 06:38: WBC 8.3, RBC 3.57 L, Hgb 10.3 L, Hct 31.8 L, MCV 89.1, MCH 28.9, MCHC 32.4, RDW 13.4, Plt Count 285 D, MPV 10.3, Neut % (Auto) 74.0, Lymph % (Auto) 13.1, [place] % (Auto) 10.9 H, Eos % (Auto) 1.6, Baso % (Auto) 0.2, Neut # (Auto) 6.2, Lymph # (Auto) 1.1, [place] # (Auto) 0.9, Eos # (Auto) 0.1, Baso # (Auto) 0.0, Sodium 133 L, Potassium 4.2, Chloride 102, Carbon Dioxide 29, Anion Gap 6.2, BUN 11 D, Creatinine 0.90, Estimated Creat Clear 121, Estimated GFR 67, Est GFR ( Amer) 81, Glucose 96, Calcium 8.6, Total Bilirubin 0.5, AST 28, ALT 15, Alkaline Phosphatase 73, Total Protein 5.7 L, Albumin 3.0 L, Globulin 2.7, Albumin/Globulin Ratio 1.1 I & O for Labs for Last 24 Hours: Intake & Output 03/11/24 03/12/24 03/13/24 03/14/24 23:59 23:59 23:59 23:59 Intake Total 1799 240 / 240 0 / 0 762 / 762 Output Total 300 / 300 420 / 420 200 / 200 Balance 1799 -60 / -60 -420 / -420 562 / 562 Weight 96.162 kg 96.162 kg 100.6 kg 101.287 kg Constitutional: Present no acute distress, chronically ill appearing and cooperative Head: Present atraumatic and normocephalic ENT: Present normal exam Comment:: NG in left nare Neck: Present normal inspection Respiratory: Present normal respiratory effort; Absent rhonchi, wheezes or crackles Cardiac: Present Reg Rate and Rhythm GI: Present soft and tenderness (Around surgical site); Absent distention, guarding or rebound Comments:: Mild activity of bowel sounds Extremities: Present normal inspection and full ROM Skin: Present intact; Absent erythema Neuro: Present Grossly Intact, alert, awake and moves all extremities Assessment and Plan *Assessment and plan (1) Small bowel obstruction: Status: Acute Category: Medical Code(s): K56.609 - Unspecified intestinal obstruction, unspecified as to partial versus complete obstruction (2) Hernia, ventral, with obstruction: Status: Acute Category: Medical Code(s): K43.6 - Other and unspecified ventral hernia with obstruction, without gangrene (3) Hypothyroidism: Status: Chronic Qualifiers: Hypothyroidism type: unspecified Qualified Code(s): E03.9 - Hypothyroidism, unspecified Category: Medical Code(s): E03.9 - Hypothyroidism, unspecified (4) HTN (hypertension): Status: Chronic Qualifiers: Hypertension type: primary hypertension Qualified Code(s): I10 - Essential (primary) hypertension Category: Medical Code(s): I10 - Essential (primary) hypertension (5) Seizures: Status: Chronic Category: Medical Code(s): R56.9 - Unspecified convulsions (6) Schizo-affective schizophrenia: Status: Chronic Category: Medical Code(s): F25.9 - Schizoaffective disorder, unspecified (7) Fever: Status: Acute Category: Medical Code(s): R50.9 - Fever, unspecified Plan 48-year-old female with schizoaffective/schizophrenia. Presented with a week of nausea vomiting and concern for obstruction. Workup in the ER concerning for incarcerated hernia. Surgery consulted and taken to the OR for treatment. Discussed case with ER physician and surgeon, request admission for monitoring a fter surgery and awaiting resumption of bowel function. I agreed to admit for further treatment. Bowel movement overnight. Surgery assisting with care. Will remove NG and advance diet today. Continues to require patient management. Anticipate discharge in the next 1-2 days. Problems addressed as follows: Bowel obstruction Ventral hernia -Taken to the OR 03/11/2024. Hernia repaired and incarceration reduced. No resection. Had a bowel movement overnight. No nausea today. Will discontinue NG and advance to clear liquids. Discussed case with surgery, recommend advancement. If continues to have bowel movements and tolerating diet, will discharge in the coming days. -Glucose normal at 96 this morning, discontinue dextrose containing fluids as we are advancing diet -Pain control with morphine IV 4 mg as needed every 4 hours 2 doses in the past 24 hours. Will discontinue and transition to 5 mg hydrocodone every 6 hours for longer benefit. -White count normalized today at 8.3. Had fever overnight. Concerned this is secondary to her medications for schizophrenia. Will continue to monitor. Cultures obtained. Empiric Zosyn for 48 hours. Hemoglobin 10.3. -Kidney function electrolytes normal with BUN 11, creatinine 0.9, potassium 4.2. Repeat CBC, CMP, magnesium ordered for the morning. Hypothyroid: Continue levothyroxine 75 mcg daily. TSH pending Hypertension: Well-controlled. Will hold blood pressure meds at this time, consider as needed IV enalapril if blood pressure above 180/100. Holding spironolactone and torsemide Hyperlipidemia: Holding statin pending resumption of p.o. intake Schizoaffective/schizophrenia: On paliperidone IM and IM pegylated aripiprazole monthly, due for aripiprazole today, dose brought from her personal longterm. Administered on 1230. Has had fever since administration with temperature up to 100.4. Suspect secondary to medication but cautiously managing for possible infection as above. Mood appropriate, cooperative. Obesity complicates all aspects of her care. Encouraged to ambulate and get out of bed. PT and OT ordered for the morning. Full code Holding anticoagulation Clear liquid
[2024-03-14 08:04] LABS: Magnesium 2.1 mg/dl (1.6-2.3)
[2024-03-14] MEDS: MORPHINE 4MG/ML SYRINGE 4 MG IV (08:14)
[2024-03-14] MEDS: SODIUM CHLORIDE 3% 15ML NEB 3 ML IH (10:41)
--- NOTE | 2024-03-14 12:53 | PC.NURSE ---
called [facility] and spoke with nurse about having issues with placing picc line yesterday, they stated they could accept a peripheral iv instead of a picc line. ras garcia.
[2024-03-14] MEDS: ACETAMINOPHEN 325MG TAB 650 MG PO (20:01)
[2024-03-15] MEDS: PIPERACILLIN/TAZO 3.375 GM in 0.9 % SODIUM CHLORIDE 50 ML IV (01:32)
[2024-03-15] MEDS: ACETAMINOPHEN 325MG TAB 650 MG PO (01:38)
[2024-03-15 04:00] VITALS: BMI 40.6
[2024-03-15 04:15] VITALS: BP 88/39; BP 94/54; PULSE 84; RESP 16; TEMP 37; O2SAT 99
[2024-03-15 04:17] VITALS: BP 86/36; PULSE 86
[2024-03-15] MEDS: LEVOTHYROXINE 75MCG (0.075MG) TAB 75 MCG PO (06:04)
[2024-03-15] MEDS: FLUTICASONE/SALMETEROL 100/50MCG DISKUS 1 PUFF IH (06:46)
[2024-03-15 07:07] LABS: Alanine Aminotransferase 15 U/L (12-78); Albumin/Globulin Ratio 1.1 (1.1-1.8); Alkaline Phosphatase 71 U/L (38-126); Anion Gap 7.7 mEq/L (5-15); Aspartate Amino Transferase 26 U/L (14-36); Bilirubin,Total 0.5 mg/dl (0.2-1.3); Blood Urea Nitrogen 6 mg/dl (7-17); Calcium 8.4 mg/dl (8.4-10.2); Carbon Dioxide 29 mmol/L (22.0-30.0); Chloride 103 mmol/L (98-107); Creatinine Clearance Estimated 54 mL/min (50-200); Estimated Glomerular Filt Rate 59 ml/min (>60); GFR (African American) 71 ML/MIN (>60); Globulin 2.7 g/dL (1.3-3.2); Glucose 90 mg/dl (74-100); Potassium 3.7 mmoL/L (3.5-5.1); Sodium 136 mmol/L (136-145); Total Protein,Serum 5.7 g/dl (6.3-8.2)
[2024-03-15 08:00] VITALS: BP 108/64; PULSE 98; RESP 19; TEMP 37.4; O2SAT 99
[2024-03-15 08:23] LABS: Basophils % 0.2 % (0.1-2.0); Eosinophils # 0.3 K/mm3 (0.0-0.4); Eosinophils % 2.9 % (0.1-12.0); Hematocrit 29.7 % (37.0-47.0); Hemoglobin 9.7 g/dL (12.2-16.2); Lymphocytes # 0.7 K/mm3 (0.7-4.5); Lymphocytes % 6.9 % (10-50); Mean Corpuscular HGB Conc 32.7 g/dL (31.8-35.4); Mean Corpuscular Hemoglobin 29.5 pg (27.0-31.2); Mean Corpuscular Volume 90.3 fl (81-99); Mean Platelet Volume 10.7 fl (7.4-10.4); Monocytes # 0.8 K/mm3 (0.1-1.0); Monocytes % 7.9 % (1.7-9.3); Neutrophils # 7.9 K/mm3 (1.8-7.8); Neutrophils % 81.9 % (37.0-80.0); Platelet Count 280 K/mm3 (142-424); Red Blood Count 3.29 M/mm3 (4.20-5.40); Red Cell Distribution Width 13.4 % (11.5-17.5); White Blood Count 9.6 K/mm3 (4.8-10.8)
[2024-03-15 09:25] LABS: Magnesium 1.9 mg/dl (1.6-2.3)
--- NOTE | 2024-03-15 10:13 | EXP.SURG.PN ---
Subjective Patient reports: no new complaints, flatus and bowel movement Exam Data for Last 24 hours Vital signs and Labs for Last 24 Hours: Temp Pulse Resp BP Pulse Ox O2 Del Method 99.3 F 98 H 19 108/64 L 99 Room Air 03/15/24 08:00 03/15/24 08:00 03/15/24 08:00 03/15/24 08:00 03/15/24 08:00 03/15/24 08:02 Laboratory Results - last 24 hr 03/15/24 06:15: WBC 9.6, RBC 3.29 L, Hgb 9.7 L, Hct 29.7 L, MCV 90.3, MCH 29.5, MCHC 32.7, RDW 13.4, Plt Count 280, MPV 10.7 H, Neut % (Auto) 81.9 H, Lymph % (Auto) 6.9 L, [place] % (Auto) 7.9, Eos % (Auto) 2.9, Baso % (Auto) 0.2, Neut # (Auto) 7.9 H, Lymph # (Auto) 0.7, [place] # (Auto) 0.8, Eos # (Auto) 0.3, Baso # (Auto) 0.0, Sodium 136, Potassium 3.7, Chloride 103, Carbon Dioxide 29, Anion Gap 7.7, BUN 6 L D, Creatinine 1.00, Estimated Creat Clear 54, Estimated GFR 59, Est GFR ( Amer) 71, Glucose 90, Calcium 8.4, Magnesium 1.9, Total Bilirubin 0.5, AST 26, ALT 15, Alkaline Phosphatase 71, Total Protein 5.7 L, Albumin 3.0 L, Globulin 2.7, Albumin/Globulin Ratio 1.1 I & O for Last 24 hours: Intake & Output 03/12/24 03/13/24 03/14/24 03/15/24 11:59 11:59 11:59 11:59 Intake Total 2039 0 / 0 762 / 762 2083 Output Total 300 / 300 300 / 300 320 / 320 0 / 0 Balance 1740 / 1740 -300 / -300 442 / 442 2083 Weight 212 lb 0.015 oz 221 lb 12.8 oz 223 lb 4.8 oz 229 lb 4.8 oz Microbiology Reports for the Last 24 Hours: Microbiology 03/14/24 01:40 Urine,Clean Catch Urine Culture - Preliminary Gram Negative Rods 03/14/24 01:40 Blood Blood Culture - Preliminary NO GROWTH AFTER 24 HOURS 03/14/24 01:40 Blood Blood Culture - Preliminary NO GROWTH AFTER 24 HOURS Constitutional Constitutional: no acute distress *Routine Respiratory Exam Respiratory: Absent respiratory distress *Routine Cardiovascular Exam Cardiovascular: Absent tachycardia *Routine Abdominal Exam Abdominal: Present soft Comments: Incision clean, dry, and intact. No erythema. Progress Note: A&P Assessment and plan (1) Small bowel obstruction: Status: Acute (2) Hernia, ventral, with obstruction: Status: Acute Assessment and Plan Assessment and Plan for All Diagnoses:: Overall, doing well postoperative day 4 status post open primary repair of incarcerated ventral hernia with ring of intestinal obstruction. Bowel function essentially returned. Okay from surgical standpoint for discharge home with close outpatient follow-up
--- NOTE | 2024-03-15 12:46 | EXP.DC.SUM ---
General Admission date:: 03/11/24 HPI HPI HPI: Ms. Caceres is a 48-year-old female with schizophrenia, hypothyroid, hypertension who lives at a personal long-term in [place]. She presented with 5 to 7 days of worsening abdominal pain, nausea and vomiting. Has not had a bowel movement 4 to 5 days. Denies any fever. States her abdomen has been feeling worse and more bloated. Workup in the ER with CT shows small bowel obstruction due to anterior abdominal wall hernia just above the umbilicus. Surgery was consulted and patient was taken to the OR for emergent surgery and reduction of incarcerated hernia. Medicine consulted for admission after the procedure. Surgery was successful, case discussed with surgeon, no bowel necessitated removal or excision at this time. Appeared viable. Hernia was closed. Would like to monitor with NG and monitor for improvement/resumption of bowel function. On evaluation after arriving to the floor, patient states she is feeling better. Denies any nausea. NG in place. Stable on room air. Alert and oriented to person and place. Pleasant on exam. Hospital Course Hospital Course Hospital Course: Stephanie Caceres is a 48-year-old female with schizoaffective/schizophrenia. Presented with a week of nausea vomiting and concern for obstruction. Workup in the ER concerning for incarcerated hernia. Surgery consulted and taken to the OR for treatment. Discussed case with ER physician and surgeon, request admission for monitoring after surgery and awaiting resumption of bowel function. I agreed to admit for further treatment. #Bowel obstruction #Incarcerated ventral hernia - General Surgery consulted, taken to the OR 03/11/2024. Hernia repaired and incarceration reduced. No resection. Had a bowel movement overnight. No nausea today. ? Discontinued NG, tolerating diet without nausea/vomiting. Having solid bowel movements. ? WBC improved from 12.3-9.6. Treated with IV Zosyn for 4 days. Hemoglobin stable at 9.7. ? General Surgery following, recommended patient can be discharged today with close follow-up. - Discharged with Augmentin for 1 more day. Will follow-up with general surgery in 1 week. #Hypothyroid: Continue levothyroxine 75 mcg daily. Will need to follow-up with PCP for dose titration as previous TSH was elevated. Did not obtain TSH here as patient presented with acute illness. #Hypertension: Holding home spironolactone, lisinopril given soft pressures. Continue torsemide 20 mg daily. #Hyperlipidemia: Continue statin. #Schizoaffective/schizophrenia: On paliperidone IM and IM pegylated aripiprazole monthly, due for aripiprazole today, dose brought from her personal long-term. Administered on 03/13. Has had fever since administration with temperature up to 100.4. Suspect secondary to medication but cautiously managing for possible infection as above. Mood appropriate, cooperative. Obesity complicates all aspects of her care. Encouraged to ambulate and get out of bed. PT/ OT recommend discharge back to personal long-term. Exam Data for Last 24 hours Vital signs and Labs for Last 24 Hours: Temp Pulse Resp BP Pulse Ox O2 Del Method 99.3 F 98 H 19 108/64 L 99 Room Air 03/15/24 08:00 03/15/24 08:00 03/15/24 08:00 03/15/24 08:00 03/15/24 08:00 03/15/24 10:51 Laboratory Results - last 24 hr 03/15/24 06:15: WBC 9.6, RBC 3.29 L, Hgb 9.7 L, Hct 29.7 L, MCV 90.3, MCH 29.5, MCHC 32.7, RDW 13.4, Plt Count 280, MPV 10.7 H, Neut % (Auto) 81.9 H, Lymph % (Auto) 6.9 L, [place] % (Auto) 7.9, Eos % (Auto) 2.9, Baso % (Auto) 0.2, Neut # (Auto) 7.9 H, Lymph # (Auto) 0.7, [place] # (Auto) 0.8, Eos # (Auto) 0.3, Baso # (Auto) 0.0, Sodium 136, Potassium 3.7, Chloride 103, Carbon Dioxide 29, Anion Gap 7.7, BUN 6 L D, Creatinine 1.00, Estimated Creat Clear 54, Estimated GFR 59, Est GFR ( Amer) 71, Glucose 90, Calcium 8.4, Magnesium 1.9, Total Bilirubin 0.5, AST 26, ALT 15, Alkaline Phosphatase 71, Total Protein 5.7 L, Albumin 3.0 L, Globulin 2.7, Albumin/Globulin Ratio 1.1 I & O for Last 24 hours: Intake & Output 03/12/24 03/13/24 03/14/2425 23:59 23:59 23:59 23:59 Intake Total 240 / 240 0 / 0 2676 / 2676 170 / 170 Output Total 300 / 300 420 / 420 200 / 200 0 / 0 Balance -60 / -60 -420 / -420 2476 / 2476 170 / 170 Weight 96.162 kg 100.6 kg 101.287 kg 104.009 kg Microbiology Reports for the Last 24 Hours: Microbiology 03/14/24 01:40 Urine,Clean Catch Urine Culture - Preliminary Gram Negative Rods 03/14/24 01:40 Blood Blood Culture - Preliminary NO GROWTH AFTER 24 HOURS 03/14/24 01:40 Blood Blood Culture - Preliminary NO GROWTH AFTER 24 HOURS Constitutional Constitutional: no acute distress *Routine HEENT Exam Head: Present normocephalic Eye: Present EOMI and PERRL ENT: Present mucous membranes moist *Routine Neck Exam Neck: Present supple; Absent lymphadenopathy *Routine Respiratory Exam Respiratory: Absent respiratory distress *Routine Cardiovascular Exam Cardiovascular: Absent tachycardia *Routine Abdominal Exam Abdominal: Present soft Comments: Incision clean, dry, and intact. No erythema. *Routine Extremities Exam Extremities: Absent cyanosis, clubbing or edema *Routine Skin Exam Skin: Present warm; Absent rash *Routine Neurological Exam Neurological: Present alert Results Data Completed and Pending Labs on day of discharge: Labs from last 24 hours 03/15/24 06:15 WBC 9.6 RBC 3.29 L Hgb 9.7 L Hct 29.7 L MCV 90.3 MCH 29.5 MCHC 32.7 RDW 13.4 Plt Count 280 MPV 10.7 H Neut % (Auto) 81.9 H Lymph % (Auto) 6.9 L [place] % (Auto) 7.9 Eos % (Auto) 2.9 Baso % (Auto) 0.2 Neut # (Auto) 7.9 H Lymph # (Auto) 0.7 [place] # (Auto) 0.8 Eos # (Auto) 0.3 Baso # (Auto) 0.0 Sodium 136 Potassium 3.7 Chloride 103 Carbon Dioxide 29 Anion Gap 7.7 BUN 6 L D Creatinine 1.00 Estimated Creat Clear 54 Estimated GFR 59 Est GFR ( Amer) 71 Glucose 90 Calcium 8.4 Magnesium 1.9 Total Bilirubin 0.5 AST 26 ALT 15 Alkaline Phosphatase 71 Total Protein 5.7 L Albumin 3.0 L Globulin 2.7 Albumin/Globulin Ratio 1.1 Preliminary micro results at discharge 03/14/24 01:40 Urine Culture - Preliminary Urine,Clean Catch Gram Negative Rods 03/14/24 01:40 Blood Culture - Preliminary Blood NO GROWTH AFTER 24 HOURS 03/14/24 01:40 Blood Culture - Preliminary Blood NO GROWTH AFTER 24 HOURS DS: Diagnosis Discharge Diagnosis (1) Small bowel obstruction: Status: Acute Code(s): K56.609 - Unspecified intestinal obstruction, unspecified as to partial versus complete obstruction (2) Hernia, ventral, with obstruction: Status: Acute Code(s): K43.6 - Other and unspecified ventral hernia with obstruction, without gangrene Meds Home Medications and Allergies Home Medications ?Medication ?Instructions ?Recorded ?Confirmed ?Type lisinopril 10 mg tablet 10 mg PO DAILY HTN 01/14/18 03/11/24 History oxybutynin chloride 5 mg tablet 5 mg PO DAILY bladder 01/14/18 03/11/24 History spironolactone 25 mg tablet 25 mg PO DAILY 03/02/18 03/11/24 History aripiprazole 400 mg intramuscular 400 mg IM Q28D 01/26/23 03/11/24 History suspension,extended release (Abilify Maintena) levothyroxine 75 mcg tablet 75 mcg PO DAILY hypothyoid 01/26/23 03/11/24 History montelukast 10 mg tablet 10 mg PO HS Allergy Symptoms 01/26/23 03/12/24 History paliperidone 6 mg tablet,extended 6 mg PO DAILY 01/26/23 03/11/24 History release 24 hr paliperidone palmitate 234 mg/1.5 234 mg IM Q28D 01/26/23 03/11/24 History mL intramuscular syringe (Invega Sustenna) torsemide 20 mg tablet 20 mg PO DAILY 01/26/23 03/11/24 History atorvastatin 40 mg tablet 40 mg PO HS 03/11/24 03/11/24 History amoxicillin 500 mg-potassium 1 tab PO BID 1 day #2 tabs 03/15/24 Rx clavulanate 125 mg tablet (Augmentin) hydrocodone 5 mg-acetaminophen 325 1 tab PO Q6HP PRN Moderate To 03/15/24 Rx mg tablet Severe Pain (4-10) 3 days #14 tabs New Prescriptions to Start Prescriptions: amoxicillin-pot clavulanate [Augmentin] [place],Richie hydrocodone-acetaminophen Richie Terry Allergies Allergy/AdvReac Type Severity Reaction Status Date / Time divalproex sodium (From Allergy Unknown Unknown Verified 03/11/24 10:52 DEPAKOTE) allergy reaction Latex, Natural Rubber Allergy Unknown Unknown Verified 03/11/24 10:52 (LATEX, NATURAL RUBBER) allergy reaction BANANAS (FOOD) Allergy Unknown Unknown Uncoded 03/11/24 10:52 allergy reaction KIWI Allergy Unknown Unknown Uncoded 03/11/24 10:52 allergy reaction Discharge Plan Disposition Patient Disposition: Home, Self-Care Condition: Fair Discharge Order Discharge Orders: Discharge Order (Routine); Ordered 03/15/24 Ordered By: Richie Terry Follow up Plan Follow up with: Fran Juan [Primary Care Provider] - See instructions (please call for appointment) Leonel Sosa MD [Staff Physician] - 1 week (office to call with appointment) Prescriptions/Medication Reconciliation: New amoxicillin-pot clavulanate [Augmentin] 500-125 mg tablet 1 tab PO BID 1 Days Qty: 2 0RF hydrocodone-acetaminophen 5-325 mg Tablet 1 tab PO Q6HP PRN (Reason: Moderate To Severe Pain (4-10)) 3 Days Qty: 14 0RF Continued oxybutynin chloride 5 MG tablet 5 mg PO DAILY torsemide 20 mg tablet 20 mg PO DAILY levothyroxine 75 mcg tablet 75 mcg PO DAILY montelukast 10 mg tablet 10 mg PO HS paliperidone 6 mg tablet extended release 24hr 6 mg PO DAILY Patient Comments: TAKE 1 TABLET BY MOUTH EVERY MORNING Invega Sustenna 234 mg/1.5 mL syringe 234 mg IM Q28D Patient Comments: INJECT 1 SYRINGE INTO THE MUSCLE EVERY 28 DAYS Abilify Maintena 400 mg suspension,extended rel recon 400 mg IM Q28D atorvastatin 40 mg tablet 40 mg PO HS Patient Comments: TAKE 1 TABLET BY MOUTH DAILY. Held spironolactone 25 mg tablet 25 mg PO DAILY Hold Instructions: Resume on 04/05/24. Please hold this medication until you follow-up with PCP as your blood pressures have been stable without it. lisinopril 10 MG tablet 10 mg PO DAILY Hold Instructions: Resume on 04/05/24. Please hold this medication until you follow-up with PCP as your blood pressures have been stable without it. Problem Reconciliation Problems Reviewed?: Yes Patient Discharge Instructions Patient Instructions: Hernia Repair, Small Bowel Obstruction, Surgical Site Infection Print Language: Slovenian Providers Primary Care Provider: Fran Juan Admit Provider: Leon Zuñiga Attending Provider: Leon Zuñiga
[2024-03-15] MEDS: AMOXICILLIN/POT CLAVULAN 500MG TABLET 1 EACH PO (13:38)
--- NOTE | 2024-03-16 13:26 | SW/DCPLANNER ---
Sent patients info to [facility] and both home health services declined her due to them not accepting patients insurance. spoke with patient and she is doing okay and that she is aware of her upcoming appointments. Patient stated that she has no concerns or questions. [employer]
== END 2024-03-15 13:41 | disposition home or self-care (01) | DRG 354 ==
LOC: UTC 10:19 → ER 10:19 → SDC 14:38 → 2ND 15:57
PROVIDERS: Nurse Practitioner Family; Surgery; Admitting Provider Internal Medicine Adolescent Medicine; Emergency Provider Emergency Medicine; PCP Pediatrics; Visit Provider Internal Medicine Adolescent Medicine
PROC: 0WQF0ZZ Repair Abdominal Wall, Open Approach (ICD-10-PCS; principal; 2024-03-11 15:00)
DX: K43.6 Other and unspecified ventral hernia with obstruction, without gangrene (principal); Z68.41 Body mass index [BMI] 40.0-44.9, adult; F17.210 Nicotine dependence, cigarettes, uncomplicated; F25.9 Schizoaffective disorder, unspecified; I10 Essential (primary) hypertension; E03.9 Hypothyroidism, unspecified; E66.01 Morbid (severe) obesity due to excess calories; Z79.899 Other long term (current) drug therapy
CPT/HCPCS: 36415; 71045; 71046; 74018; 74177; 80053; 80074; 81001; 83690; 83735; 84484; 84703; 85025; 86803; 87040; 87086; 87088; 87186; 87389; 87631; 87636; 93005; 94640; 97162; 97166; 97530; 99285; J3490; J0295; J1100; J1885; J2250; J2270; J2405; J2543; J2550; J3010; J7120; Q9967